=== PATIENT | female | born 1950 | race Caucasian/White ===

== ENCOUNTER → 2017-07-12 08:47 | Outpatient (CLI) | payer MEDICARE, OTHER, SELFPAY ==
--- NOTE | 2017-07-12 08:51 | MM_ITS ---
MM Dig screening mamm BI w/CAD CAD Screening ORDERING PHYSICIAN : Castro Sanchez MD PATIENT AGE: 67 years GENDER: Female . HISTORY No hormones. No new complaints. Noncontributory family history. Previous benign excisional biopsy right breast COMPARISON: Previous mammograms: December 2011, November 2009 mammogram TECHNIQUE: Standard CC and MLO images were obtained. R2 CAD reviewed. FINDINGS: Minimal residual fibrolinear elements diffusely scattered throughout the breast centrally. No dominant mass nor suspicious calcifications. RIGHT BREAST: No significant appearing new areas of concern Small focal area of density inferior right breast is been present I believe on studies dating back to even 2006.. As well as small area of density medial right breast. I would recommend annual follow-up for these features. LEFT BREAST: No significant appearing new areas of concern At the minimal nodularity is similar to previous studies and dissipates from CC and MLO view. Overall no significant appearing change. Would again recommend bilateral follow-up in one year for ongoing evaluation. ......... IMPRESSION: ......... No significant new areas of concern Follow-up bilateral mammogram in one year recommended and should be emphasized/encouraged. . Minimal scattered slightly nodular fibroglandular density bilaterally with No significant new areas concern. BI-RADS Category: 2 Benign Finding(s) RECOMMENDED FOLLOW-UP: 1YR - 1 YEAR FOLLOW-UP Bilateral follow-up recommended and should be emphasized/encouraged (A letter has been sent to the patient regarding results of the study.) Screening
== END ==
PROVIDERS: Family Provider Internal Medicine Adolescent Medicine; PCP Internal Medicine Adolescent Medicine; Visit Provider Internal Medicine Adolescent Medicine
DX: Z12.31 Encounter for screening mammogram for malignant neoplasm of breast (principal)
CPT/HCPCS: 77067

== ENCOUNTER → 2018-08-04 11:08 | Outpatient (CLI) | payer MEDICARE, OTHER, SELFPAY ==
[2018-08-04 12:00] LABS: Basophils # 0.1 K/mm3 (0-0.2); Basophils % 1.7 % (0.1-2.0); Eosinophils # 0.4 K/mm3 (0.0-0.4); Eosinophils % 6.2 % (0.1-12.0); Lymphocytes # 1.6 K/mm3 (0.7-4.5); Mean Corpuscular HGB Conc 27.7 g/dL (31.8-35.4); Mean Corpuscular Hemoglobin 19.1 pg (27.0-31.2); Mean Corpuscular Volume 68.9 fl (81-99); Mean Platelet Volume 6.6 fl (7.4-10.4); Monocytes # 0.4 K/mm3 (0.1-1.0); Monocytes % 6.8 % (1.7-9.3); Neutrophils # 3.8 K/mm3 (1.8-7.8); Neutrophils % 60.3 % (37.0-80.0); Platelet Count 474 K/mm3 (142-424); White Blood Count 6.3 K/mm3 (4.8-10.8)
[2018-08-04 12:26] LABS: Hematocrit 33.7 % (37.0-47.0); Hemoglobin 9.5 g/dL (12.2-16.2); Red Blood Count 4.88 M/mm3 (4.20-5.40)
[2018-08-04 13:36] LABS: Ferritin 8 ng/mL (8-388)
[2018-08-05 17:53] LABS: Vitamin B12 359 pg/mL (232-1245)
== END ==
PROVIDERS: PCP Internal Medicine Adolescent Medicine; Visit Provider Internal Medicine Adolescent Medicine
DX: D64.9 Anemia, unspecified (principal)
CPT/HCPCS: 36415; 82607; 82728; 82746; 85025

== ENCOUNTER → 2018-08-12 12:28 | Outpatient (CLI) | payer MEDICARE, OTHER, SELFPAY ==
--- NOTE | 2018-08-12 12:33 | XR_ITS ---
XR chest 2V HISTORY: ITS.REASON: DYSPNEA ORDERING PHYSICIAN: Castro Sanchez MD PATIENT AGE: 68 years COMPARISON: 02/27/2015 FINDINGS: There is cardiomegaly with a large hiatal hernia. Mild atelectatic changes are present in the right lung base. Lungs are otherwise clear. IMPRESSION: Cardiomegaly with large hiatal hernia unchanged.
== END ==
PROVIDERS: PCP Internal Medicine Adolescent Medicine; Visit Provider Internal Medicine Adolescent Medicine
DX: R06.09 Other forms of dyspnea (principal)
CPT/HCPCS: 71046

== ENCOUNTER → 2018-08-18 09:16 | Outpatient (CLI) | payer MEDICARE, OTHER, SELFPAY ==
[2018-08-18 10:20] LABS: Basophils # 0.1 K/mm3 (0-0.2); Basophils % 1.8 % (0.1-2.0); Eosinophils # 0.4 K/mm3 (0.0-0.4); Hemoglobin 10.2 g/dL (12.2-16.2); Lymphocytes # 1.5 K/mm3 (0.7-4.5); Lymphocytes % 23.4 % (10-50); Mean Corpuscular HGB Conc 27.6 g/dL (31.8-35.4); Mean Corpuscular Volume 72.4 fl (81-99); Monocytes # 0.4 K/mm3 (0.1-1.0); Monocytes % 6.4 % (1.7-9.3); Neutrophils # 3.9 K/mm3 (1.8-7.8); Neutrophils % 61.4 % (37.0-80.0); Platelet Count 483 K/mm3 (142-424); Red Blood Count 5.12 M/mm3 (4.20-5.40); Red Cell Distribution Width 18.4 % (11.5-17.5); White Blood Count 6.3 K/mm3 (4.8-10.8)
[2018-08-18 11:26] LABS: Alanine Aminotransferase 37 U/L (12-78); Albumin Level 3.8 gm/dL (3.4-5.0); Albumin/Globulin Ratio 1.4 (1.1-1.8); Alkaline Phosphatase 139 U/L (46-116); Anion Gap 16.5 mEq/L (5-15); Aspartate Amino Transferase 24 U/L (15-37); Bilirubin,Total 0.4 mg/dL (0.2-1.0); Blood Urea Nitrogen 14 mg/dL (7-18); Calcium 9.3 mg/dL (8.5-10.1); Carbon Dioxide 24 mmol/L (21.0-32.0); Chloride 105 mmol/L (98-107); Creatinine,Serum 0.84 mg/dL (0.55-1.02); Estimated Glomerular Filt Rate 68 ml/min (>60); Ferritin 22 ng/mL (8-388); GFR (African American) 82 ML/MIN (>60); Globulin 2.7 gm/dl (1.3-3.2); Glucose 93 mg/dL (74-106); Potassium 4.5 mmoL/L (3.5-5.1); Sodium 141 mmol/L (136-145); Total Protein,Serum 6.5 gm/dL (6.4-8.2)
[2018-08-19 08:49] LABS: Iron 29 ug/dL (27-139); UIBC 361 ug/dL (118-369)
[2018-08-19 11:36] LABS: Haptoglobin 135 mg/dL (34-200); Iron Saturation 7 % (15-55)
== END ==
PROVIDERS: Visit Provider Internal Medicine Medical Oncology
DX: D50.9 Iron deficiency anemia, unspecified (principal)
CPT/HCPCS: 36415; 80053; 82728; 83010; 83540; 83550; 85025

== ENCOUNTER → 2018-08-22 12:40 | Outpatient (CLI) | payer MEDICARE, OTHER, SELFPAY ==
--- NOTE | 2018-08-22 | CA_ITS ---
PROCEDURE: 2-D M-mode and color Doppler study INDICATIONS FOR THE TEST: Chest pain COPD Heart Murmur+ Tobacco Smoking Palpitations+ Fatigue+ Syncope Edema+ Hypertension Diabetes Mellitus Rheumatic Fever SOB AGUILAR+Obesity+Hyperlipidemia+ Family History HD+ Additional History Anemia PATIENT INFORMATION HEIGHT: 66 WEIGHT: 240 GENDER: Female B/P: 130/78 2-D/M-MODE INTERPRETATION: 2-D MEASUREMENTS OBSERVED VALUES IN CMS Right Ventricular Dimension (RVDd) 1.7 Interventricular Septum (Thickness)(IVsd) 0.7 Left Ventricular Internal Dimensions(LVIDd) 4.3 Left Ventricular Posterior Wall (Thickness)(LVPWd) 0.7 Aortic Root 3.1 Aortic Cusp Separation 2.3 Left Atrial Dimensions (LAD) 2.3 2D 1. Left atrium is mildly enlarged, left ventricle is normal size, left ventricle wall thickness is upper limit of normal, there is hyperdynamic left ventricular systolic function, visually estimated ejection fraction over 65% with no regional wall motion abnormality. 2. The right atrium and right ventricle are normal size and contractility. 3. The aortic valve is thickened and calcified leaflet continue to display good mobility. 4. The mitral and tricuspid valve leaflets are minimally thickened. 5. The pulmonic valve is poorly visualized. 6. No significant pericardial effusion noted. DOPPLER INTERROGATION: There is mildly increased velocity seen across the aortic and mitral valve likely secondary to prior cardiac output state, there is mild aortic and mild mitral regurgitation seen. Grade 1 diastolic dysfunction seen with tissue Doppler evidence of raised left atrial pressure. Mild tricuspid regurgitation noted, tricuspid regurgitation jet velocity is inadequate for calculation of the right ventricular systolic pressure. CONCLUSION: 1. Mildly enlarged left atrium, normal left ventricular size, hyperdynamic left ventricular systolic function, visually estimated ejection fraction over 65% with no regional wall motion abnormality, grade 1 diastolic dysfunction seen with tissue Doppler evidence of raised left atrial pressure. 2. Mild aortic, mild mitral and tricuspid regurgitation. 3. No significant pericardial effusion noted.
== END ==
PROVIDERS: PCP Internal Medicine Adolescent Medicine; Visit Provider Internal Medicine Adolescent Medicine
DX: R06.09 Other forms of dyspnea (principal); R00.2 Palpitations
CPT/HCPCS: 93306

== ENCOUNTER → 2018-08-26 08:44 | Outpatient (CLI) | payer MEDICARE, OTHER, SELFPAY ==
--- NOTE | 2018-08-26 08:47 | MM_ITS ---
MM Dig screening mamm BI w/CAD CAD Screening COMPARISON: Digital mammograms with CAD 07/12/2017 at 01/18/2012 INDICATION: There is no personal or family history of breast cancer. There has been previous biopsy right breast for benign disease. TECHNIQUE: Standard CC and MLO images were obtained. R2 CAD reviewed. FINDINGS: The breasts are composed primarily of fat with minimal scattered fibronodular densities throughout. There are couple benign-appearing calcifications in each breast. There is a stable benign-appearing asymmetric density central portion left breast. There are no suspicious microcalcifications. IMPRESSION: Fibrofatty parenchyma with no suspicious lesion seen. BI-RADS Category: 2 Benign Finding(s) RECOMMENDED FOLLOW-UP: 1YR - 1 YEAR FOLLOW-UP (A letter has been sent to the patient regarding results of the study.)
== END ==
PROVIDERS: PCP Internal Medicine Adolescent Medicine; Visit Provider Internal Medicine Adolescent Medicine
DX: Z12.31 Encounter for screening mammogram for malignant neoplasm of breast (principal)
CPT/HCPCS: 77067

== ENCOUNTER 2018-08-31 10:35 | Outpatient (CLI) | payer MEDICARE, OTHER, SELFPAY ==
[2018-08-31 11:05] VITALS: BP 149/90; PULSE 72; RESP 18; TEMP 36.6; O2SAT 96
[2018-08-31 11:35] VITALS: BP 158/81; PULSE 72; RESP 18
== END 2018-08-31 11:50 | disposition home or self-care (01) ==
LOC: INF 10:43
PROVIDERS: Visit Provider Internal Medicine Medical Oncology
DX: D50.9 Iron deficiency anemia, unspecified (principal); T45.4X5A Adverse effect of iron and its compounds, initial encounter
CPT/HCPCS: 96365; J1439

== ENCOUNTER 2018-09-07 10:53 | Outpatient (CLI) | payer MEDICARE, OTHER, SELFPAY ==
[2018-09-07 11:15] VITALS: BP 141/69; PULSE 52; RESP 18; O2SAT 97
[2018-09-07 12:00] VITALS: BP 161/74; PULSE 50; RESP 18; O2SAT 93
== END 2018-09-07 12:00 | disposition home or self-care (01) ==
LOC: INF 10:53
PROVIDERS: Visit Provider Internal Medicine Medical Oncology
DX: D50.9 Iron deficiency anemia, unspecified (principal)
CPT/HCPCS: 96365

== ENCOUNTER → 2018-10-10 11:07 | Outpatient (CLI) | payer MEDICARE, OTHER, SELFPAY ==
[2018-10-10 11:43] LABS: Basophils # 0.1 K/mm3 (0-0.2); Basophils % 1.5 % (0.1-2.0); Eosinophils # 0.5 K/mm3 (0.0-0.4); Eosinophils % 7.7 % (0.1-12.0); Hematocrit 41.8 % (37.0-47.0); Lymphocytes # 1.4 K/mm3 (0.7-4.5); Lymphocytes % 20.2 % (10-50); Mean Corpuscular HGB Conc 31.2 g/dL (31.8-35.4); Mean Corpuscular Hemoglobin 25.5 pg (27.0-31.2); Mean Corpuscular Volume 81.5 fl (81-99); Mean Platelet Volume 7.4 fl (7.4-10.4); Monocytes # 0.4 K/mm3 (0.1-1.0); Monocytes % 6.2 % (1.7-9.3); Neutrophils # 4.4 K/mm3 (1.8-7.8); Neutrophils % 64.4 % (37.0-80.0); Platelet Count 425 K/mm3 (142-424); Red Blood Count 5.12 M/mm3 (4.20-5.40); Red Cell Distribution Width 21.2 % (11.5-17.5); White Blood Count 6.8 K/mm3 (4.8-10.8)
== END ==
PROVIDERS: Visit Provider Internal Medicine Medical Oncology
DX: D50.9 Iron deficiency anemia, unspecified (principal)
CPT/HCPCS: 36415; 85025

== ENCOUNTER → 2019-09-01 13:04 | Outpatient (CLI) | payer MEDICARE, OTHER, SELFPAY ==
[2019-09-01 14:19] LABS: Basophils # 0.1 K/mm3 (0-0.2); Basophils % 1.4 % (0.1-2.0); Eosinophils # 0.3 K/mm3 (0.0-0.4); Eosinophils % 4.5 % (0.1-12.0); Hematocrit 47.6 % (37.0-47.0); Hemoglobin 16.4 g/dL (12.2-16.2); Lymphocytes # 1.7 K/mm3 (0.7-4.5); Lymphocytes % 24.8 % (10-50); Mean Corpuscular HGB Conc 34.4 g/dL (31.8-35.4); Mean Corpuscular Hemoglobin 30.1 pg (27.0-31.2); Mean Corpuscular Volume 87.5 fl (81-99); Mean Platelet Volume 7.9 fl (7.4-10.4); Monocytes # 0.3 K/mm3 (0.1-1.0); Monocytes % 4.8 % (1.7-9.3); Neutrophils # 4.3 K/mm3 (1.8-7.8); Neutrophils % 64.5 % (37.0-80.0); Platelet Count 296 K/mm3 (142-424); Red Blood Count 5.44 M/mm3 (4.20-5.40); Red Cell Distribution Width 13.8 % (11.5-17.5); White Blood Count 6.7 K/mm3 (4.8-10.8)
[2019-09-01 14:46] LABS: Chloride 105 mmol/L (98-107); Potassium 4.8 mmoL/L (3.5-5.1); Sodium 137 mmol/L (136-145)
[2019-09-01 14:48] LABS: Alanine Aminotransferase 41 U/L (12-78); Aspartate Amino Transferase 43 U/L (14-36); Blood Urea Nitrogen 23 mg/dl (7-17); Estimated Glomerular Filt Rate 83 ml/min (>60); GFR (African American) 101 ML/MIN (>60)
[2019-09-01 14:49] LABS: Albumin Level 4.4 g/dl (3.5-5.0); Albumin/Globulin Ratio 1.8 (1.1-1.8); Alkaline Phosphatase 115 U/L (38-126); Anion Gap 11.8 mEq/L (5-15); Calcium 10.2 mg/dl (8.4-10.2); Carbon Dioxide 25 mmol/L (22.0-30.0); Chol/HDL Ratio 2.6 (1-3.5); Cholesterol 155 mg/dl (140-200); Globulin 2.4 g/dL (1.3-3.2); Glucose 95 mg/dl (74-100); HDL Cholesterol 60 mg/dl (40-60); Total Protein,Serum 6.8 g/dl (6.3-8.2); Triglycerides 141 mg/dl (30-150); VLDL Cholesterol 28 mg/dL (0-40)
[2019-09-01 14:59] LABS: 25-OH Vitamin D, Total 36.5 ng/mL (30-100)
[2019-09-01 15:00] LABS: Direct LDL Cholesterol 84.69 mg/dL (100-129)
[2019-09-01 15:19] LABS: Thyroid Stimulating Hormone 1.13 uIU/mL (0.465-4.68)
== END ==
PROVIDERS: Visit Provider Internal Medicine Adolescent Medicine
DX: E78.5 Hyperlipidemia, unspecified (principal); E03.9 Hypothyroidism, unspecified; E55.9 Vitamin D deficiency, unspecified
CPT/HCPCS: 36415; 80053; 80061; 82306; 84443; 85025

== ENCOUNTER → 2020-01-22 09:30 | Outpatient (CLI) | payer MEDICARE, OTHER, SELFPAY ==
[2020-01-22 10:33] LABS: Basophils # 0.1 K/mm3 (0-0.2); Basophils % 1.8 % (0.1-2.0); Eosinophils # 0.4 K/mm3 (0.0-0.4); Eosinophils % 5.7 % (0.1-12.0); Hematocrit 48.4 % (37.0-47.0); Hemoglobin 15.7 g/dL (12.2-16.2); Lymphocytes # 1.6 K/mm3 (0.7-4.5); Lymphocytes % 25.3 % (10-50); Mean Corpuscular HGB Conc 32.4 g/dL (31.8-35.4); Mean Corpuscular Hemoglobin 29.3 pg (27.0-31.2); Mean Corpuscular Volume 90.3 fl (81-99); Mean Platelet Volume 7.6 fl (7.4-10.4); Monocytes # 0.4 K/mm3 (0.1-1.0); Monocytes % 5.9 % (1.7-9.3); Neutrophils # 3.8 K/mm3 (1.8-7.8); Neutrophils % 61.3 % (37.0-80.0); Platelet Count 283 K/mm3 (142-424); Red Blood Count 5.36 M/mm3 (4.20-5.40); Red Cell Distribution Width 13.9 % (11.5-17.5); White Blood Count 6.2 K/mm3 (4.8-10.8)
[2020-01-22 10:35] LABS: Chloride 104 mmol/L (98-107)
[2020-01-22 10:36] LABS: Potassium 4.6 mmoL/L (3.5-5.1); Sodium 140 mmol/L (136-145)
[2020-01-22 10:39] LABS: Anion Gap 12.6 mEq/L (5-15); Blood Urea Nitrogen 24 mg/dl (7-17); Calcium 9.9 mg/dl (8.4-10.2); Carbon Dioxide 28 mmol/L (22.0-30.0); Estimated Glomerular Filt Rate 83 ml/min (>60); GFR (African American) 101 ML/MIN (>60); Glucose 100 mg/dl (74-100)
[2020-01-22 10:57] LABS: Coronavirus 19 IgG Antibody Negative (Negative); Coronavirus 19 IgM Antibody Negative (Negative)
== END ==
PROVIDERS: Visit Provider Surgery
DX: D17.9 Benign lipomatous neoplasm, unspecified (principal); Z01.818 Encounter for other preprocedural examination
CPT/HCPCS: 36415; 80048; 85025; 86328

== ENCOUNTER 2020-01-24 06:31 | Day surgery (SDC) | payer MEDICARE, OTHER, SELFPAY ==
[2020-01-22 10:53] VITALS: BMI 35.5
[2020-01-24] VITALS (11 sets, daily range): BP systolic 129–165; BP diastolic 70–82; PULSE 49–63; RESP 11–18; TEMP 36.1–36.9; O2SAT 94–97
--- NOTE | 2020-01-24 07:06 | P.PN_ITS ---
[facility] Anesthesia Checklist - Patient Identification Patient Identification: Arm Band, Verbal (Name & ) - Structural Data Admitted From: Home Planned Operative Procedure/s: Excision of left upper extremity lipoma Consent for Planned Operative Procedure(s) Verified: Yes Verified Documents: Surgical Consent, History and Physical - NPO Status Verified Time NPO: 18:00 - Chart Verification Results Verified: CBC, BMP - Additional verifications Anesthesia Reactions: No Hx Blood Transfusions: No Blood Transfusion Reaction: No - Airway Assessment C-Spine Mobility Assessed: Yes TMJ Mobility Assessed: Yes Dentition: Dentures-good fit (Upper) - Neurological Assessment Level of Consciousness: Awake, Alert, Appropriate, Follows Commands Hx Seizures: No Numbness or tingling in extremities: No - Anesthesia Plan Anesthesia Risk discussed: Yes Anesthesia Plan: Verified ASA Class: II Anesthesia Type: General [facility] History I have reviewed the patient's past medical history: Yes Medical History: Reports:: Depression, Hyperlipidemia, Hypertension Denies:: Cancer, Diabetes Mellitus Type 1, Diabetes Mellitus Type 2, Internal Pacemaker, Lung Disease, MRSA, Seizures *Have you ever received a pneumonia vaccine?: Yes *Have you received a flu vaccine this season?: Yes Other Medical History: Reports: Anemia, Hypothyroidism. Denies: Blood Transfusion Reaction Comment:: Obesity Anesthesia experience/problems:: None Laterality Cases: Bilateral: Tonsillectomy Other Surgeries: Yes: Colonoscopy, Hernia Repair, Hysterectomy-Total. No: Pacemaker Amputation: No Fractures: No - *Social History Last grade of school completed: High school graduate Smoking Status: Never smoker Alcohol Intake: never Substance Use Type: denies use *Occupational Status:: retired Housing: house Household Members: none *Travel in the last 8 weeks: None - Psychiatric History Pschychiatric History:: Reports:: Depression Family Hx:: No significant family history
--- NOTE | 2020-01-24 08:23 | P.OP_ITS ---
Date of procedure: 01/24/20 Pre-op Diagnosis:: Massive left upper extremity lipoma Post-op Diagnosis:: Same Procedure performed:: Excision of left upper extremity lipoma (excisional length greater than 10 cm) with intermediate complexity closure Surgeon:: Lonnie Tang MD BOBJ DEVELOPER:: Jose Miguel Garibay Anesthesia: LMA Estimated blood loss (mL): 10 Clinical Note:: Patient is a pleasant 69-year-old female referred by Dr. Castro Sanchez for left upper extremity lipoma. I had previously seen the patient for possible upper endoscopy to evaluate iron deficiency anemia. However she had seen Dr. Dunne and Dr. 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 She is now sent for large left upper extremity lipoma. This is in the region of the posterior left upper extremity overlying the triceps. She states that this has been present for about 2 years but has increased in size. She has discomfort. Operative findings:: Extremely large left upper extremity well-circumscribed lipoma Operative note:: Patient was taken to the operating room. She was given preoperative intravenous antibiotics. In the operating room she was placed in a supine position. General anesthesia was induced via endotracheal tube. Left upper extremity was prepped and draped in the standard surgical fashion. Borders of the palpable lipoma were marked with a skin marker. Due to the redundancy of the skin from the large lipoma skin was marked with skin marker for elliptical incision. Inci shlomo was performed. Dissection was carried down through superficial fascial tissue. Well-circumscribed lipomatous mass was encountered. This was bluntly dissected free from surrounding structures. This is consistent with an extremely large lipoma. Remainder of attachments were incised using electrocautery. The lipoma with the skin ellipse removed from the lipoma were sent as a single specimen. There was some minor oozing at a single point deep in the wound and this was controlled with 3-0 chromic [id number] suture. There appeared to be good hemostasis. Subdermal tissues were closed with interrupted 2-0 Vicryl. Skin was closed with 4-0 Monocryl in a subcuticular fashion. Steri-Strips and dressing was applied. Condition: stable Disposition: PACU Specimens:: Left upper extremity lipoma Complications:: None immediately apparent
--- NOTE | 2020-01-24 08:24 | P.PN_ITS ---
[facility] Anesthesia Record Part I Intake, IV Amount: 700 Estimated blood loss (mL): 20 Urine output (mL): 0 Blood Products used (#): none Blood Pressure: 131/77 SaO2: 96 Pulse Rate: 63 Respiratory Rate: 11 Temperature: 98.4 F Patient is:: Awake, Nasal O2, Stable Stable to PACU at:: 08:20
--- NOTE | 2020-01-24 13:58 | P.PN_ITS ---
[facility] Anesthesia Record Part II Discharge Time: 08:50 Destination: Surgical Day Care (OP Surgery) PACU nurse assessment reviewed?: Yes Patient Condition:: Good Anesthesia Complications:: None Swallowing reflex intact?: Yes Cyanosis?: No Blood Pressure: 140/73 Pulse Rate: 52 Temperature: 98.4 F Mental Status: Alert & Oriented Pain level:: 0 Nausea and/or vomitting:: None Intake, IV Amount: 0
== END 2020-01-24 09:27 | disposition home or self-care (01) ==
LOC: OR 06:32
PROVIDERS: PCP Internal Medicine Adolescent Medicine; Visit Provider Surgery
PROC: (CPT 11406; principal; 2020-01-24 07:30)
DX: D17.22 Benign lipomatous neoplasm of skin and subcutaneous tissue of left arm (principal); L91.8 Other hypertrophic disorders of the skin; R20.8 Other disturbances of skin sensation; D64.9 Anemia, unspecified; E78.5 Hyperlipidemia, unspecified; F32.9 Major depressive disorder, single episode, unspecified
CPT/HCPCS: 11406; 12031; 88304; 96374; J2405

== ENCOUNTER → 2021-01-01 12:46 | Outpatient (CLI) | payer MEDICARE, OTHER, SELFPAY ==
[2021-01-01 13:56] LABS: Basophils # 0.1 K/mm3 (0-0.2); Basophils % 1.5 % (0.1-2.0); Eosinophils # 0.4 K/mm3 (0.0-0.4); Eosinophils % 6.1 % (0.1-12.0); Hematocrit 49.2 % (37.0-47.0); Lymphocytes # 1.7 K/mm3 (0.7-4.5); Lymphocytes % 26.3 % (10-50); Mean Corpuscular HGB Conc 32.4 g/dL (31.8-35.4); Mean Corpuscular Hemoglobin 29.8 pg (27.0-31.2); Mean Corpuscular Volume 91.8 fl (81-99); Mean Platelet Volume 8.3 fl (7.4-10.4); Monocytes # 0.4 K/mm3 (0.1-1.0); Neutrophils # 3.8 K/mm3 (1.8-7.8); Neutrophils % 60.1 % (37.0-80.0); Platelet Count 352 K/mm3 (142-424); Red Blood Count 5.36 M/mm3 (4.20-5.40); Red Cell Distribution Width 13.8 % (11.5-17.5); White Blood Count 6.4 K/mm3 (4.8-10.8)
[2021-01-01 14:03] LABS: Hemoglobin A1C 5.3 % (4.0-6.0)
[2021-01-01 15:03] LABS: Chloride 102 mmol/L (98-107); Potassium 4.8 mmoL/L (3.5-5.1); Sodium 138 mmol/L (136-145)
[2021-01-01 15:05] LABS: Blood Urea Nitrogen 20 mg/dl (7-17); Estimated Glomerular Filt Rate 99 ml/min (>60); GFR (African American) 120 ML/MIN (>60)
[2021-01-01 15:06] LABS: Alanine Aminotransferase 83 U/L (12-78); Albumin Level 4.2 g/dl (3.5-5.0); Albumin/Globulin Ratio 1.9 (1.1-1.8); Alkaline Phosphatase 143 U/L (38-126); Anion Gap 11.8 mEq/L (5-15); Aspartate Amino Transferase 69 U/L (14-36); Bilirubin,Total 0.7 mg/dl (0.2-1.3); Calcium 10.1 mg/dl (8.4-10.2); Carbon Dioxide 29 mmol/L (22.0-30.0); Globulin 2.2 g/dL (1.3-3.2); Glucose 91 mg/dl (74-100); Total Protein,Serum 6.4 g/dl (6.3-8.2)
[2021-01-01 15:32] LABS: 25-OH Vitamin D, Total 34.2 ng/mL (30-100)
[2021-01-01 15:37] LABS: Thyroid Stimulating Hormone 0.07 uIU/mL (0.465-4.68)
== END ==
PROVIDERS: Visit Provider Internal Medicine Adolescent Medicine
DX: E03.9 Hypothyroidism, unspecified (principal); E78.5 Hyperlipidemia, unspecified; E55.9 Vitamin D deficiency, unspecified; E66.3 Overweight; Z68.30 Body mass index [BMI] 30.0-30.9, adult; Z79.899 Other long term (current) drug therapy
CPT/HCPCS: 36415; 80053; 82306; 83036; 84443; 85025

== ENCOUNTER 2021-05-12 01:47 | Emergency (ER) | payer MEDICARE, SELFPAY ==
[2021-05-12] VITALS (8 sets, daily range): BP systolic 105–134; BP diastolic 56–75; PULSE 59–71; RESP 18; TEMP 36.4–36.8; O2SAT 94–97; BMI 34.2
--- NOTE | 2021-05-12 01:52 | CT_ITS ---
PROCEDURE INFORMATION: Exam: CT Abdomen And Pelvis With Contrast Exam date and time: 05/12/2021 2:34 AM Age: 71 years old Clinical indication: Nausea and vomiting and other: Diarrhea; Additional info: N/v/d for < 3hr TECHNIQUE: Imaging protocol: Computed tomography of the abdomen and pelvis with contrast. Radiation optimization: All CT scans at this facility use at least one of these dose optimization techniques: automated exposure control; mA and/or kV adjustment per patient size (includes targeted exams where dose is matched to clinical indication); or iterative reconstruction. Contrast material: ISOVUE; Contrast volume: 75 ml; Contrast route: IV; COMPARISON: CR (CHEST PA, CHEST, CHEST PA) 08/12/2018 12:51 PM FINDINGS: Liver: Normal. No mass. Gallbladder and bile ducts: Normal. No calcified stones. No ductal dilation. Pancreas: Normal. No ductal dilation. Spleen: Normal. No splenomegaly. Adrenal glands: Normal. No mass. Kidneys and ureters: There is a 1.7 cm cyst in the right kidney. The left kidney is normal. No ureteral stones or obstructive uropathy. Stomach and bowel: Loops of small bowel in the left upper quadrant with thickened gibson consistent with infectious or inflammatory enteritis. Appendix: No evidence of appendicitis. Intraperitoneal space: Unremarkable. No free air. No significant fluid collection. Vasculature: Unremarkable. No abdominal aortic aneurysm. Lymph nodes: Unremarkable. No enlarged lymph nodes. Urinary bladder: Unremarkable as visualized. Reproductive: Unremarkable as visualized. Bones/joints: Unremarkable. No acute fracture. Soft tissues: Unremarkable. IMPRESSION: Infectious or inflammatory enteritis. Right renal cyst. COMMENTS: Consistent with the [employer]'s Incidental Findings Committee white paper (J Am Ann Radiol 2018): Any incidental renal lesion less than 1 cm or classified as too small to characterize, or any incidental cystic renal lesion characterized as simple-appearing, is likely benign. No follow-up imaging is recommended for these lesions per consensus recommendations based on imaging criteria.
--- NOTE | 2021-05-12 01:52 | ECG_ITS ---
APPROVED REPORT Exam: Resting ECG HR:59 bpm ECG Measurements Heart Rate 59 AXES WA 180 P 12 QRSd 84 QRS 101 QT 398 T -2 QTc 397 Conclusion SINUS BRADYCARDIA RIGHT AXIS DEVIATION [QRS AXIS > 100] LOW QRS VOLTAGE IN PRECORDIAL LEADS [QRS DEFLECTION < 1.0 mV IN CHEST LEADS] NONSPECIFIC T-WAVE ABNORMALITY ABNORMAL ECG UNCONFIRMED REPORT Electronically signed by : Castro Sanchez MD 05/13/2021 16:43:41
[2021-05-12 02:03] LABS: Basophils # 0.1 K/mm3 (0-0.2); Basophils % 1.1 % (0.1-2.0); Eosinophils # 0.3 K/mm3 (0.0-0.4); Eosinophils % 2.2 % (0.1-12.0); Hematocrit 52.3 % (37.0-47.0); Hemoglobin 17.1 g/dL (12.2-16.2); Lymphocytes # 1.4 K/mm3 (0.7-4.5); Lymphocytes % 10.7 % (10-50); Mean Corpuscular HGB Conc 32.6 g/dL (31.8-35.4); Mean Corpuscular Hemoglobin 30.5 pg (27.0-31.2); Mean Corpuscular Volume 93.3 fl (81-99); Mean Platelet Volume 8.2 fl (7.4-10.4); Monocytes # 0.4 K/mm3 (0.1-1.0); Monocytes % 2.9 % (1.7-9.3); Neutrophils # 10.9 K/mm3 (1.8-7.8); Platelet Count 316 K/mm3 (142-424); Red Blood Count 5.61 M/mm3 (4.20-5.40); Red Cell Distribution Width 13.7 % (11.5-17.5); White Blood Count 13.1 K/mm3 (4.8-10.8)
[2021-05-12 02:03] LABS: POC Glucose,Bedside 128 (70-110)
[2021-05-12 02:06] LABS: Coronavirus 19, PCR Not Detected (NotDetected); Influenza A, PCR Not Detected (NotDetected); Influenza B, PCR Not Detected (NotDetected)
[2021-05-12 02:17] LABS: Alanine Aminotransferase 45 U/L (12-78); Albumin Level 4.6 g/dl (3.5-5.0); Albumin/Globulin Ratio 1.7 (1.1-1.8); Alkaline Phosphatase 110 U/L (38-126); Amylase 73 U/L (30-110); Anion Gap 16.2 mEq/L (5-15); Aspartate Amino Transferase 51 U/L (14-36); Bilirubin,Total 0.6 mg/dl (0.2-1.3); Blood Urea Nitrogen 24 mg/dl (7-17); Carbon Dioxide 23 mmol/L (22.0-30.0); Chloride 105 mmol/L (98-107); Creatinine Clearance Estimated 81 mL/min (50-200); Estimated Glomerular Filt Rate 71 ml/min (>60); GFR (African American) 86 ML/MIN (>60); Globulin 2.7 g/dL (1.3-3.2); Glucose 131 mg/dl (74-100); Lipase 44 U/L (23-300); Magnesium 1.7 mg/dl (1.6-2.3); Potassium 4.2 mmoL/L (3.5-5.1); Sodium 140 mmol/L (136-145); Total Protein,Serum 7.3 g/dl (6.3-8.2)
[2021-05-12 02:18] LABS: Lactic Acid 2.2 mmol/L (0.7-2.1)
[2021-05-12 02:24] LABS: C-Reactive Protein 1.3 mg/L (0-4)
[2021-05-12 02:28] LABS: Erythrocyte Sedimentation Rate 4 mm/hr (0-30)
[2021-05-12 02:33] LABS: Troponin I < 0.01 ng/ml (0.00-0.034)
[2021-05-12 02:38] LABS: Adenovirus F 40/41, stool Not Detected (NotDetected); Astrovirus Not Detected (NotDetected); Campylobacter Not Detected (NotDetected); Clostridium Difficile A/B, PCR Not Detected (NotDetected); Cryptosporidium Not Detected (NotDetected); Cyclospora Cayetanesis Not Detected (NotDetected); Entamoeba histolytica Not Detected (NotDetected); Enteroaggregative E coli Not Detected (NotDetected); Enteropathogenic E coli Not Detected (NotDetected); Enterotoxigenic E coli Not Detected (NotDetected); Giardia lamblia Not Detected (NotDetected); Plesimonas Shigalloides, PCR Not Detected (NotDetected); Rotavirus A Not Detected (NotDetected); Salmonella, PCR Not Detected (NotDetected); Sapovirus Not Detected (NotDetected); Shiga-like toxin E coli Not Detected (NotDetected); Shigella Enterovasive E coli Not Detected (NotDetected); Vibrio Cholerae Not Detected (NotDetected); Vibrio, PCR Not Detected (NotDetected); Yersinia Entercolitica, PCR Not Detected (NotDetected)
[2021-05-12 02:38] LABS: Procalcitonin 0.064 ng/mL (0.0-2.0)
[2021-05-12 02:51] LABS: Thyroid Stimulating Hormone 0.98 uIU/mL (0.465-4.68)
[2021-05-12 04:20] LABS: Norovirus Detected (NotDetected)
--- NOTE | 2021-05-12 04:52 | PC.NURSE ---
forestry technician notified staff the [facility] is behind on reading images and reports will be back as soon as possible. notified pt and pt's family @ this time
--- NOTE | 2021-05-12 05:19 | HMH.EDNVD ---
ED Disposition Clinical Impression: Enteritis due to Norovirus Disposition: Home, Self-Care Condition on Discharge: Good Instructions: DI for Norovirus Infection Additional Instructions: fluids and see pcp for follow up Referrals: Castro Sanchez MD [Primary Care Provider] - - Critical Care Critical Care Time: No Attestation: On 05/12/21, the high probability of a clinically significant, sudden or life threatening deterioration of the following system(s) required my full and direct attention, intervention and personal management. The time I documented below is in addition to time spent performing reported procedures but includes the following listed in this critical care notation. Medical Decision Making - Medical Records Medical records reviewed: Yes: I reviewed the patient's medical records. - Scott Inquiry Pt receiving controlled substance: No Vital Signs: 05/12/21 01:47 Temperature 97.5 F L Temperature Source Oral Pulse Rate [Right] 61 Respiratory Rate 18 Blood Pressure [Right Arm] 132/75 Blood Pressure Mean [Right Arm] 94 02 Sat by Pulse Oximetry 95 - Lab Data Lab results reviewed: Yes: I reviewed the patient's lab results. Lab Results 05/12/21 01:54: WBC 13.1 H, RBC 5.61 H, Hgb 17.1 H, Hct 52.3 H, MCV 93.3, MCH 30.5, MCHC 32.6, RDW 13.7, Plt Count 316, MPV 8.2, Neut % (Auto) 83.0 H, Lymph % (Auto) 10.7, Ness % (Auto) 2.9, Eos % (Auto) 2.2, Baso % (Auto) 1.1, Neut # (Auto) 10.9 H, Lymph # (Auto) 1.4, Ness # (Auto) 0.4, Eos # (Auto) 0.3, Baso # (Auto) 0.1, ESR 4 05/12/21 01:54: Sodium 140, Potassium 4.2, Chloride 105, Carbon Dioxide 23, Anion Gap 16.2 H, BUN 24 H, Creatinine 0.80, Estimated Creat Clear 81, Estimated GFR 71, Est GFR ( Amer) 86, Glucose 131 H, Calcium 10.0, Magnesium 1.7, Total Bilirubin 0.6, AST 51 H, ALT 45, Alkaline Phosphatase 110, Troponin I < 0.01, C-Reactive Protein 1.3, Total Protein 7.3, Albumin 4.6, Globulin 2.7, Albumin/Globulin Ratio 1.7, Amylase 73, Lipase 44, Procalcitonin 0.064, TSH 0.98 05/12/21 01:54: Lactate 2.2 H 05/12/21 01:56: POC Glucose 128 H 05/12/21 02:02: SARS-CoV-2 (PCR) Not detected, Influenza A Untype (PCR) Not detected, Influenza Type B (PCR) Not detected 05/12/21 02:20: Stl Aeromonas (PCR) Not detected, Stl C. cayetanensis PCR Not detected, Stool Rotavirus (PCR) Not detected, Stl Adenov F 40/41 PCR Not detected, Stool Astrovirus (PCR) Not detected, Stool Campylobacter PCR Not detected, Stl C.difficile Tox PCR Not detected, Stool Cryptosporidium PCR Not detected, Stl E.coli Shiga Tox PCR Not detected, Stool E coli O157 PCR Not detected, Stl Enterotoxigenic E PCR Not detected, Stool EPEC (PCR) Not detected, Stool EAEC (PCR) Not detected, Stl E. histolytica PCR Not detected, Stool Giardia Lamblia PCR Not detected, Stool Salmonella PCR Not detected, Stool Sapovirus (PCR) Not detected, Stl P. shigelloides PCR Not detected, Stl Shigella/EIEC PCR Not detected, St Y.enterocolitica PCR Not detected, Stool Vibrio (PCR) Not detected, Stl Vibrio cholerae PCR Not detected, Stl Norovirus GI/GII PCR Detected A Result diagrams: 05/12/21 01:54 05/12/21 01:54 Orders (Tests/Meds): ED MEDICATIONS Generic Name Dose Route Start Last Admin Trade Name Freq PRN Reason Stop Dose Admin Lactated Ringer's 1,000 mls @ 999 mls/hr 05/12/21 02:00 05/12/21 02:00 Lactated Ringer's 1000 Ml Bag IV 05/12/21 03:00 999 mls/hr .Q1H1M ANABELLA Administration Lactated Ringer's 1,000 mls @ 999 mls/hr 05/12/21 04:30 05/12/21 04:22 Lactated Ringer's 1000 Ml Bag IV 05/12/21 05:30 999 mls/hr .Q1H1M ANABELLA Administration Sodium Chloride 8 ml 05/12/21 01:55 Sodium Chloride 0.9% 10ml Vial IV 06/11/21 01:54 NEEDED PRN dilute pepcid Discontinued Medications Generic Name Dose Route Start Last Admin Trade Name Freq PRN Reason Stop Dose Admin Famotidine 20 mg 05/12/21 01:55 05/12/21 02:00 Famotidine 20mg/2ml Vial IV 05/12/21 01:56 20 mg ONCE
== END 2021-05-12 05:33 | disposition home or self-care (01) ==
PROVIDERS: Emergency Provider Emergency Medicine; PCP Internal Medicine Adolescent Medicine
DX: A08.11 Acute gastroenteropathy due to Norwalk agent (principal); I10 Essential (primary) hypertension; E78.5 Hyperlipidemia, unspecified; F33.1 Major depressive disorder, recurrent, moderate; E03.9 Hypothyroidism, unspecified; R19.7 Diarrhea, unspecified; D64.89 Other specified anemias
CPT/HCPCS: 74177; 80053; 82150; 82962; 83605; 83690; 83735; 84145; 84443; 84484; 85025; 85651; 86140; 87040; 87507; 93005; 96360; 96361; 96365; 96366; 96374; 96375; 99284; C9803; J2405; Q9967; U0003; U0005

== ENCOUNTER → 2022-02-04 08:18 | Outpatient (CLI) | payer MEDICARE, SELFPAY ==
--- NOTE | 2022-02-04 08:21 | XR_ITS ---
FINAL REPORT TECHNIQUE: Bone densitometry calculations of the lumbar spine and right hip were obtained. CLINICAL HISTORY: post menopausal FINDINGS: DEXA BONE DENSITY AXIAL SKELETON Using L1-4, the bone mineral density of the spine is 0.939 g/cm2, corresponding to T-score of -1.0. Using the right hip, the bone mineral density of the femoral neck is 0.680 g/cm2, corresponding to a T-score of -1.5. NOTE: T-score: Standard deviation compared with peak bone mass of young adult mean. *Following the recommendations of the International Society of Bone densitometry, classification of hip BMD is based on the lower of two T-scores; total hip or femoral neck. IMPRESSION: Diminished bone mineral density of the lumbar spine and right hip consistent with osteopenia. FRAX 10 year fracture risk is 1.3% for a hip fracture and 9.2% for a major osteoporotic fracture. Reviewed, Interpreted and Dictated by Lonnie Brewster III, MD Transcribed by [facility] [employer] Authenticated and [facility]
--- NOTE | 2022-02-04 08:21 | MM_ITS ---
PROCEDURE INFORMATION: Exam: MG Bilateral Screening 3D Mammography Exam date and time: 02/04/2022 8:36 AM Age: 71 years old Clinical indication: Screening examination TECHNIQUE: Imaging protocol: Bilateral Screening tomosynthesis and 2D mammography including computer-aided detection (CAD) when performed. COMPARISON: 1. MG DIG MAMM-SCREEN ALAN 08/26/2018 9:14 AM 2. MG SCBI MM Dig screening mamm BI w/CAD 07/12/2017 9:08 AM FINDINGS: MAMMOGRAPHY: Breast composition: There are scattered areas of fibroglandular density. Mass: None. Architectural distortion: None. Calcifications: No suspicious calcifications. Asymmetric density: None. Skin thickening: None. Axillary adenopathy: None. IMPRESSION: No mammographic evidence of malignancy. Annual screening is recommended unless otherwise clinically indicated. ASSESSMENT: BI-RADS Category 1: Negative
== END ==
PROVIDERS: PCP Internal Medicine Adolescent Medicine; Visit Provider Internal Medicine Adolescent Medicine
DX: Z12.31 Encounter for screening mammogram for malignant neoplasm of breast (principal); Z78.0 Asymptomatic menopausal state
CPT/HCPCS: 77063; 77067; 77080

== ENCOUNTER 2022-04-15 08:56 | Emergency (ER) | payer MEDICARE, SELFPAY ==
[2022-04-15 09:01] VITALS: BP 147/73; PULSE 65; O2SAT 99
--- NOTE | 2022-04-15 09:03 | ECG_ITS ---
APPROVED REPORT Exam: Resting ECG HR:52 bpm ECG Measurements Heart Rate 52 AXES HI 186 P 58 QRSd 75 QRS 30 QT 396 T 43 QTc 376 Conclusion SINUS BRADYCARDIA LOW QRS VOLTAGE IN PRECORDIAL LEADS Late R wave progression. Unchanged from prior UNCONFIRMED REPORT Electronically signed by : Castro Sanchez MD 04/15/2022 14:12:26
[2022-04-15 09:04] VITALS: BP 147/73; PULSE 58; RESP 28; O2SAT 98; BMI 34.2
--- NOTE | 2022-04-15 09:10 | ECG_ITS ---
APPROVED REPORT Exam: Resting ECG HR:54 bpm ECG Measurements Heart Rate 54 AXES UT 180 P 112 QRSd 76 QRS 56 QT 383 T 35 QTc 368 Conclusion SINUS BRADYCARDIA LOW QRS VOLTAGE [QRS DEFLECTION < 0.5/1.0 mV IN Late R wave progression, unchanged from prior ABNORMAL ECG UNCONFIRMED REPORT Electronically signed by : Castro Sanchez MD 04/15/2022 14:11:55
[2022-04-15 09:24] LABS: Coronavirus 19, PCR Not Detected (NotDetected); Influenza A, PCR Not Detected (NotDetected); Influenza B, PCR Not Detected (NotDetected)
[2022-04-15 09:31] VITALS: BP 123/65; PULSE 54; O2SAT 95
[2022-04-15 10:01] VITALS: BP 133/67; PULSE 51; O2SAT 92
--- NOTE | 2022-04-15 10:12 | HMH.EDGENADL ---
Discharge Plan Disposition Patient Disposition: Home, Self-Care Condition: Good Prescriptions Prescriptions: New methylprednisolone [Medrol] 4 mg tablet 4 mg PO DAILY Qty: 30 0RF benzonatate 100 mg capsule 100 mg PO TID PRN (Reason: cough) Qty: 20 0RF doxycycline hyclate [Vibramycin] 100 mg capsule 100 mg PO BID Qty: 20 0RF albuterol sulfate [ProAir HFA] 90 mcg/actuation HFA aerosol inhaler 2 inh inhalation Q6H PRN (Reason: shortness of breath or wheezing) Qty: 6.7 0RF No Action atorvastatin 80 mg tablet 80 mg PO DAILY venlafaxine 150 MG capsule,extended release 24hr 150 mg PO DAILY levothyroxine 150 MCG tablet 150 mcg PO DAILY bisoprolol fumarate 5 MG tablet 5 mg PO DAILY Referrals Follow up/Referrals: Castro Sanchez MD [Primary Care Provider] - See instructions Activity Restrictions/Add. Instructions Additional Instructions/Restrictions: Doxycycline, antibiotic, as prescribed. Medrol steroid pack as prescribed. Albuterol inhaler as needed for shortness of breath and wheezing. Tessalon Perles as needed for cough. Follow-up with Dr. Sanchez in the office, call for appointment. Additional instructions for ACUTE BRONCHITIS: Use Tylenol or Ibuprofen for pain or fever. Rest and plenty of fluids. Return immediately if you have an uncontrollable fever greater than 102 degrees, severe headache or neck stiffness, difficulty breathing or shortness of breath, persistent vomiting, severe sore throat or inability to swallow. See your physician if not improving in 4-5 days. Clinical Impressions Clinical Impression: Acute bronchitis with bronchospasm Instructions Patient Instructions: DI for Acute Bronchitis Discharge ED Provider: Daniel Villeda General Adult HPI General Chief complaint: Shortness of Breath/Dyspnea Stated complaint: SOA Cough wheezing Time Seen by Provider: 04/15/22 10:10 Mode of Arrival: Ambulatory Source of Information: Patient Limitations: No Limitations Description of Symptoms (Recalled from ER Triage Doc. by RN): Pt c/o consistent cough, congestion worsening and accompanying shortness of breath w bronchial discomfort since 04/12; denies PMHx lung tissue or pulm disease History of Present Illness HPI narrative: Patient states that for the past 3 to 4 days she has had a bad cough, chest congestion. Denies chest pain. Denies fever. She had some rhinorrhea which is resolved. Denies sore throat. She saw her primary care provider on 04/13/2022 and says that she was told that she had crackles in her chest, and was diagnosed with a chest cold. She was given injection of steroids. No testing done. Today she feels worse, therefore comes to the emergency department. She is a non-smoker, no history of asthma or COPD or other lung problems. Denies cardiac disease. Prior to my evaluation she received a nebulizer treatment which she feels has helped. Related Data Home Medications Medication Instructions Recorded Confirmed levothyroxine 150 mcg tablet 150 mcg PO DAILY tyhyroid 08/17/17 05/12/21 venlafaxine 150 mg 150 mg PO DAILY Depression 08/17/17 05/12/21 capsule,extended release 24 hr atorvastatin 80 mg tablet 80 mg PO DAILY Cholesterol 08/18/18 05/12/21 bisoprolol fumarate 5 mg tablet 5 mg PO DAILY High blood pressure 01/22/20 05/12/21 Previous Rx's Medication Instructions Recorded albuterol sulfate 90 mcg/actuation 2 inh inhalation Q6H PRN shortness 04/15/22 aerosol inhaler (ProAir HFA) of breath or wheezing #6.7 grams benzonatate 100 mg capsule 100 mg PO TID PRN cough #20 caps 04/15/22 doxycycline hyclate 100 mg capsule 100 mg PO BID #20 caps 04/15/22 (Vibramycin) methylprednisolone 4 mg tablet 4 mg PO DAILY #30 tabs 04/15/22 (Medrol) Allergies Allergy/AdvReac Type Severity Reaction Status Date / Time No Known Allergies Allergy Verified 02/09/20 13:35 [facility] Disclaimer: The information contained in this
--- NOTE | 2022-04-15 10:18 | XR_ITS ---
FINAL REPORT CLINICAL HISTORY: cough NON PRODUCTIVE FINDINGS: Two views of the chest were obtained. The heart size and pulmonary vascularity are within normal limits. The mediastinum is normal. There is mild left lung base opacity, favor atelectasis. There is localized eventration of the right hemidiaphragm. There is no pneumothorax. The bony thorax is intact. IMPRESSION: Mild left lung base opacity, favor atelectasis. Localized eventration of the right hemidiaphragm. Reviewed, Interpreted and Dictated by Lonnie Brewster III, MD Transcribed by Blessing Wing Authenticated and [facility]
--- NOTE | 2022-04-15 10:20 | PC.NURSE ---
rad notified of xray order
[2022-04-15 10:26] LABS: Chloride 107 mmol/L (98-107); Potassium 4.5 mmoL/L (3.5-5.1); Sodium 141 mmol/L (136-145)
[2022-04-15 10:29] LABS: Anion Gap 7.5 mEq/L (5-15); Blood Urea Nitrogen 23 mg/dl (7-17); Carbon Dioxide 31 mmol/L (22.0-30.0); Creatinine Clearance Estimated 79 mL/min (50-200); Estimated Glomerular Filt Rate 83 ml/min (>60); GFR (African American) 100 ML/MIN (>60)
[2022-04-15 10:30] LABS: Calcium 9.2 mg/dl (8.4-10.2); Glucose 101 mg/dl (74-100)
[2022-04-15 10:33] LABS: Lactic Acid 1.4 mmol/L (0.7-2.1)
[2022-04-15 10:36] LABS: Basophils # 0.1 K/mm3 (0-0.2); Basophils % 1.8 % (0.1-2.0); Eosinophils # 0.4 K/mm3 (0.0-0.4); Eosinophils % 6.2 % (0.1-12.0); Hematocrit 51.1 % (37.0-47.0); Hemoglobin 16.4 g/dL (12.2-16.2); Lymphocytes # 2.1 K/mm3 (0.7-4.5); Lymphocytes % 36.8 % (10-50); Mean Corpuscular Hemoglobin 29.7 pg (27.0-31.2); Mean Corpuscular Volume 92.6 fl (81-99); Mean Platelet Volume 8.2 fl (7.4-10.4); Monocytes # 0.3 K/mm3 (0.1-1.0); Monocytes % 5.6 % (1.7-9.3); Neutrophils # 2.8 K/mm3 (1.8-7.8); Neutrophils % 49.6 % (37.0-80.0); Platelet Count 259 K/mm3 (142-424); Red Blood Count 5.52 M/mm3 (4.20-5.40); Red Cell Distribution Width 13.6 % (11.5-17.5); White Blood Count 5.6 K/mm3 (4.8-10.8)
[2022-04-15 10:41] VITALS: BP 116/70; PULSE 54; O2SAT 97
--- NOTE | 2022-04-15 10:43 | PC.NURSE ---
urine specimen sent up at this time pt resting in bed, call light within reach
--- NOTE | 2022-04-15 10:54 | PC.NURSE ---
LISA TOWNSEND speaking with dr. harrell
[2022-04-15 12:18] VITALS: BP 123/70; PULSE 47; RESP 14; TEMP 36.9; O2SAT 93
== END 2022-04-15 12:21 | disposition home or self-care (01) ==
PROVIDERS: Emergency Provider Emergency Medicine; PCP Internal Medicine Adolescent Medicine
DX: J20.9 Acute bronchitis, unspecified (principal); Z20.822 Contact with and (suspected) exposure to COVID-19
CPT/HCPCS: 71046; 80048; 83605; 85025; 87040; 93005; 96374; 99285; C9803; U0003; U0005

== ENCOUNTER → 2023-01-28 14:08 | Outpatient (CLI) | payer MEDICARE, SELFPAY ==
--- NOTE | 2023-01-28 14:14 | MM_ITS ---
PROCEDURE INFORMATION: Exam: MG Bilateral Screening 3D Mammography Exam date and time: 01/28/2023 2:08 PM Age: 72 years old Clinical indication: Screening. No family history of breast cancer. TECHNIQUE: Imaging protocol: Bilateral Screening tomosynthesis and 2D mammography including computer-aided detection (CAD) when performed. COMPARISON: 1. MG MM DIG SCREENING MAMM BI W/CAD 02/04/2022 8:36 AM 2. MG DIG MAMM-SCREEN ALAN 08/26/2018 9:14 AM 3. MG SCBI MM Dig screening mamm BI w/CAD 07/12/2017 9:08 AM 4. MG DMSB DIGITAL MAMM-SCREEN BILATERAL 01/18/2012 4:15 PM FINDINGS: MAMMOGRAPHY: Breast composition: There are scattered areas of fibroglandular density. Mass: No suspicious mass. Architectural distortion: None. Calcifications: No suspicious calcifications. Asymmetric density: None. Skin thickening: None. Axillary adenopathy: None. IMPRESSION: No mammographic evidence of malignancy. Annual screening is recommended unless otherwise clinically indicated. ASSESSMENT: BI-RADS Category 1: Negative
== END ==
LOC: RAD 14:09
PROVIDERS: PCP Internal Medicine Adolescent Medicine; Visit Provider Internal Medicine Adolescent Medicine
DX: Z12.31 Encounter for screening mammogram for malignant neoplasm of breast (principal)
CPT/HCPCS: 77063; 77067

== ENCOUNTER → 2023-02-11 07:27 | Outpatient (CLI) | payer MEDICARE, SELFPAY ==
--- NOTE | 2023-02-11 07:31 | XR_ITS ---
FINAL REPORT CLINICAL HISTORY: RT SHOULDER PAIN COMPARISON: None FINDINGS: RIGHT SHOULDER Three views demonstrate no acute fracture or dislocation. There are mild hypertrophic changes at the AC joint. The visualized joint spaces are normally aligned. The soft tissues are unremarkable. IMPRESSION: Hypertrophic changes without acute process. Reviewed, Interpreted and Dictated by Gabriel Luz MD Transcribed by Maryam Matt Authenticated and [facility]
== END ==
LOC: RAD 07:28
PROVIDERS: PCP Internal Medicine Adolescent Medicine; Visit Provider Physician Assistant
DX: M25.511 Pain in right shoulder (principal)
CPT/HCPCS: 73030

== ENCOUNTER 2023-10-17 10:49 | Inpatient (IN) | payer MEDICARE, SELFPAY ==
[2023-10-17] VITALS (24 sets, daily range): BP systolic 102–145; BP diastolic 54–83; PULSE 49–61; RESP 14–23; TEMP 36.4–36.7; O2SAT 92–100; BMI 37.3
--- NOTE | 2023-10-17 | IR_ITS ---
APPROVED REPORT Patient Location: [facility] Machine Crewman: SENAIT Huitron RT (R) PROCEDURES Left heart catheterization Left ventriculogram Selective coronary angiogram INDICATION Acute ST elevation myocardial infarction Informed consent was obtained prior to the procedure. COMPLICATIONS None Estimated Blood Loss: Less than 10 mls TECHNIQUE One percent lidocaine used to anesthetize the right anterior aspect of the wrist. The right radial artery was accessed via the Seldinger technique. A 6 Polish sheath was placed in the right radial artery. 2.5 mg of Verapamil, 800 mcg of nitroglycerin, 1mg Lidocaine and 5000 U Heparin were given through the arterial sheath. The papa catheter was also used to perform left heart catheterization, left ventriculogram and selective coronary angiogram. At the end of the procedure the sheath was removed good hemostasis was achieved using Traclet band, patient was transferred to the postop holding area in stable condition. ANGIOGRAPHIC RESULTS The left main artery Large-caliber and normal The left anterior descending artery Is a large-caliber vessel with no angiographic evidence of macrovascular atherosclerotic plaque. The vessel is considered angiographically normal however GABINO II flow is present in the proximal to midportion with GABINO I flow in the distal segment The circumflex artery Massively large and dominant with diffuse GABINO II flow The right coronary artery Small nondominant normal The STRONG ventriculogram reveals Preserved at 55 to 60% there appears to be some mid anterior apical hypokinesis The left ventricular end-diastolic pressure 25 mmHg IMPRESSION No angiographic evidence of atherosclerotic plaque accompanied by slow flow down the LAD consistent with acute Takotsubo cardiomyopathy Regional wall motion abnormality also consistent with Takotsubo cardiomyopathy Elevated LVEDP PLAN 1. Start patient on nitroglycerin drip and continue overnight for a target blood pressure of 120 to 130 mmHg systolic 2. Supportive care 3. Echocardiogram in the morning Electronically signed by : Jake Collado MD 10/17/2023 12:40:20
--- NOTE | 2023-10-17 11:06 | ECG_ITS ---
APPROVED REPORT Exam: Resting ECG HR:54 bpm ECG Measurements Heart Rate 54 AXES AL 208 P 63 QRSd 65 QRS 31 QT 404 T 30 QTc 389 Conclusion SINUS BRADYCARDIA WITH MARKED SINUS ARRHYTHMIA LOW QRS VOLTAGE IN PRECORDIAL LEADS [QRS DEFLECTION < 1.0 mV IN CHEST LEADS] ST ELEVATION, CONSIDER ANTERIOR INJURY [MARKED ST ELEVATION W/O NORMALLY INFLECTED T-WAVE IN V2-V5] ST ELEVATION, CONSIDER INFERIOR INJURY [MARKED ST ELEVATION W/O NORMALLY INFLECTED T-WAVE IN II/aVF] ACUTE [place] UNCONFIRMED REPORT Electronically signed by : Cortez Boston, 10/17/2023 14:51:50
--- OUTSIDE RECORDS SUMMARY | 2023-10-17 11:09 | XMS_ITS | Continuity of Care Document ---
Author Organization [facility] Phone Care Team Providers Care Tetryl Boiling Tub Operator Name Role Phone LIZZY JONES Admitting LIZZY JONES Primary Care LIZZY JONES Primary Attending LIZZY JONES Unavailable TREATMENT PLAN DISCHARGE MEDICATIONS Status RXNORM Medication Dose Route Frequency Dates Comments U pdated By Patient discharge medication information is not available. PATIENT OPEN ORDERS Code System Description Frequency Occurrences Priority [place] [id number] [facility] Upper extremity joint - right MRI WO contrast ONE TIME 0 Routine February 17, 2023 1:36:00 PM [facility] ROBERT BALL MD [id number] on February 17, 2023 1:36:00 PM [facility] SCHEDULED PROCEDURES Code System Description Status Scheduled Date Upd ated By Patient scheduled procedure information is not available. MEDICATIONS HOME MEDICATIONS Status RXNORM Medication Dose Route Frequency Dates Comments R eported By Updated By Drug Treatment Unknown DISCHARGE MEDICATIONS Status RXNORM Medication Dose Route Frequency Dates Comments Physic eveline Updated By No Discharge Medication Info rmation Available INPATIENT MEDICATIONS Status RXNORM Medication Dose Route Frequency Rate Quantity Dates Comments Physician Updated By No Inpatient Medication Info rmation Available SOCIAL HISTORY SOCIAL HISTORY SNOMED-CT Social History Element Description Effective Dates Offered Cessation Comment UpdatedBy [id number] Smoking Status Unknown If Ever Smoked SOCIAL HISTORY - Gender Sex: Female SOCIAL HISTORY - Sexual Behavior Sexual Orientation Gender Identity SNOMED-CT Description SNO MED -CT Description Activity Level No of Partners Partner Type UpdatedBy Information is not available HEALTH CONCERNS Problems Concern Status Health Concern problem infor mation not available. Smoking Status Status Years Used Consumed packs p er day Health Concern smoking histo ry information not available. Family History Concern Status Health Concern family histor y information not available. ENCOUNTERS ENCOUNTER INFORMATION Reason for Visit M25.511 Admission February 17, 2023 1:22:00 PM UTC [address] [address] Discharge February 17, 2023 1:22:00 PM [place] DISCHARGED TO HOME OR SELF CARE ENCOUNTER DIAGNOSES Notes information is not teresa ilable. Code System Diagnosis Onset Date Diagnosis information is not available. ABSTRACT DIAGNOSES Code System Diagnosis Updated By M25.511 ICD10 PAIN IN RIGHT SHOULDER [id number] on February 11, 2023 8:47:03 PM UTC CARE TEAM Care Tetryl Boiling Tub Operator Role LIZZY JONES Admitting LIZZY JONES Primary Care LIZZY JONES Primary Attending LIZZY JONES Referring CARE TEAM CARE associate merchandiser Role on Team Status Start Date End Date Update d By ROBERT BALL MD PCP normal February 11, 2023 8:47:04 PM UTC February 17, 2023 1:22:00 PM [place] [id number] on February 11, 2023 8:47:04 PM [facility] ROBERT BALL MD Referring normal February 11, 2023 8:47:04 PM UTC February 17, 2023 1:22:00 PM [place] [id number] on February 11, 2023 8:47:04 PM [facility] ROBERT BALL MD Attending normal February 11, 2023 8:47:04 PM UTC February 17, 2023 1:22:00 PM [place] [id number] on February 11, 2023 8:47:04 PM [facility] ROBERT BALL MD Admitting normal February 11, 2023 8:47:04 PM UTC February 17, 2023 1:22:00 PM UTC [id number] on February 11, 2023 8:47:04 PM [facility]
--- OUTSIDE RECORDS SUMMARY | 2023-10-17 11:09 | XMS_ITS | Continuity of Care Document ---
Author Organization [facility] Phone Care Team Providers Care Chemical Production Machine Operator Name Role Phone LIZZY JONES Admitting LIZZY JONES Primary Care LIZZY JONES Primary Attending [phone] LIZZY JONES Unavailable RESULTS Patient: CODY DIANA Date of : February 28 5 LABORATORY RESULTS Information is not available LABORATORY NARRATIVE RESULTS Information is not available RADIOLOGY RESULTS ORDER 100: MRI EXTREM UPR MAXIME INT RT WO (LOINC: 96109-1) ORDER DATE: February 17, 2023 1:36:00 PM [facility] PERFORMING LAB: [address] [id number] Final Result Date: February 17, 2023 3:29:[address] [place] [address] Name: ADALGISA ROSS Exam Date: 02/17/2023 : 1950 Age 72 years Gender: F Physician: LIZZY JONES Facility: [facility] Facility HSV: Outpatient Exam: MRI EXTREM UPR JOINT RT WO FINAL REPORT CLINICAL HISTORY: acute pain in right shoulder FINDINGS: Multi planar MR imaging of the right shoulder was performed. There is complete disruption and proximal retraction of the supraspinatus tendon. Tendon is retracted 4.3 cm. There is superior subluxation of the humeral head. There is heterogeneous thickening of the subscapularis tendon consistent with tendinosis. There is a large amount of fluid in the subcoracoid recess. The anterior and posterior glenoid michaela appear intact. The biceps tendon is mildly medially subluxed. The acromioclavicular joint appears intact. IMPRESSION: Complete disruption and proximal retraction of the supraspinatus tendon. Tendinosis of the subscapularis tendon. Mild medial subluxation of the biceps tendon. Reviewed, Interpreted and Dictated by Gabriel Luz MD Transcribed by Yudi Castellanos Authenticated and [facility] Dictated By: Gabriel Luz Transcribed By: Transcribed On: 02/17/2023 10:29 AM Electronically signed by: Gabriel Luz 02/17/2023 Thank you for referring ADALGISA ROSS to [facility]. Legally authenticated by STIVEN Shelton MD 2023-02-17 10:29:18 PATHOLOGY NARRATIVE RESULTS Information is not available MICROBIOLOGY RESULTS No Micro Labs/Results Exist for Patient BLOOD ADMIN RESULTS Information is not available MEDICATIONS HOME MEDICATIONS Status RXNORM Medication Dose [...] Description Effective Dates Offered Cessation Comment UpdatedBy [id number] Smoking Status Unknown If Ever Smoked SOCIAL [...] M25.511 Admission February 17, 2023 1:22:[address] [address] Discharge February 17, 2023 1:22:00 PM [facility] DISCHARGED TO HOME OR SELF CARE ENCOUNTER DIAGNOSES Notes information is not teresa ilable. Code System Diagnosis Onset Date Diagnosis information is not available. ABSTRACT DIAGNOSES Code System Diagnosis Updated By M25.511 ICD10 PAIN IN RIGHT SHOULDER [id number] on February 18, 2023 4:52:35 PM [facility] M25.511 ICD10 PAIN IN RIGHT SHOULDER [id number] on February 18, 2023 4:52:35 PM UTC CARE TEAM Care Chemical Production Machine Operator Role LIZZY JONES Admitting LIZZY JONES Primary Care LIZZY JONES Primary Attending LIZZY JONES Referring CARE TEAM CARE construction crew member Role on Team Status Start Date End Date Update d By ROBERT BALL MD PCP normal February 11, 2023 8:47:04 PM [place] February 17, 2023 5:00:00 AM [facility] [id number] on February 11, 2023 8:47:04 PM [facility] ROBERT BALL MD Referring normal February 11, 2023 8:47:04 PM [facility] February 17, 2023 5:00:00 AM [facility] [id number] on February 11, 2023 8:47:04 PM [facility] ROBERT BALL MD Attending normal February 11, 2023 8:47:04 PM [facility] February 17, 2023 5:00:00 AM [facility] [id number] on February 11, 2023 8:47:04 PM [facility] ROBERT BALL MD Admitting normal February 11, 2023 8:47:04 PM [facility] February 17, 2023 5:00:00 AM [place] [id number] on February 11, 2023 8:47:04 PM [facility]
--- NOTE | 2023-10-17 11:10 | PC.NURSE ---
fsbs 74
--- NOTE | 2023-10-17 11:11 | ECG_ITS ---
APPROVED REPORT Exam: Resting ECG HR:55 bpm ECG Measurements Heart Rate 55 AXES WI 194 P 47 QRSd 73 QRS 18 QT 404 T 28 QTc 393 Conclusion SINUS BRADYCARDIA WITH OCCASIONAL ECTOPIC PREMATURE COMPLEXES LOW QRS VOLTAGE IN PRECORDIAL LEADS [QRS DEFLECTION < 1.0 mV IN CHEST LEADS] ST ELEVATION, CONSIDER ANTERIOR INJURY [MARKED ST ELEVATION W/O NORMALLY INFLECTED T-WAVE IN V2-V5] ST ELEVATION, CONSIDER INFERIOR INJURY [MARKED ST ELEVATION W/O NORMALLY INFLECTED T-WAVE IN II/aVF] ACUTE [place] UNCONFIRMED REPORT Electronically signed by : Cortez Boston, 10/17/2023 14:51:59
--- NOTE | 2023-10-17 11:18 | PC.NURSE ---
ptis diaphoretic,weak,dizzy. @ bedside
--- NOTE | 2023-10-17 11:25 | PC.NURSE ---
Pt placed on zoll and STEMI pads @
--- NOTE | 2023-10-17 11:30 | PC.NURSE ---
1121- Paged Dr. Collado 1122- Dr. Boston s/w Dr. Collado, shared images 1125- Paged STEMI alert per MDs, House notified 1130- Cath Team activated
[2023-10-17] MEDS: ASPIRIN 81MG CHEWABLE TABLET 324 MG PO (11:32)
[2023-10-17] MEDS: HEPARIN SODIUM 5,000 UNIT/ML VIAL 10000 UNIT IV (11:32)
[2023-10-17] MEDS: TICAGRELOR 90MG TABLET 180 MG PO (11:32)
--- NOTE | 2023-10-17 11:32 | ED_ITS ---
Discharge Plan Disposition Patient Disposition: Admitted Prescriptions Prescriptions: No Action atorvastatin 80 mg tablet 80 mg PO DAILY venlafaxine 150 MG capsule,extended release 24hr 150 mg PO DAILY levothyroxine 150 MCG tablet 150 mcg PO DAILY bisoprolol fumarate 5 MG tablet 5 mg PO DAILY methylprednisolone [Medrol] 4 mg tablet 4 mg PO DAILY Qty: 30 0RF benzonatate 100 mg capsule 100 mg PO TID PRN (Reason: cough) Qty: 20 0RF doxycycline hyclate [Vibramycin] 100 mg capsule 100 mg PO BID Qty: 20 0RF albuterol sulfate [ProAir HFA] 90 mcg/actuation HFA aerosol inhaler 2 inh inhalation Q6H PRN (Reason: shortness of breath or wheezing) Qty: 6.7 0RF Referrals Follow up/Referrals: Castro Sanchez MD [Primary Care Provider] - See instructions Clinical Impressions Clinical Impression: ST elevation PR (STEMI), Bradycardia Print Language Print Language: Ivorian Discharge ED Provider: Yuliya Boston General Adult HPI General Chief complaint: Weakness Stated complaint: nauseous, weak, clammy, hot Time Seen by Provider: 10/17/23 11:15 Mode of Arrival: Wheelchair Source of Information: Patient and Relative Limitations: No Limitations Description of Symptoms (Recalled from ER Triage Doc. by RN): weak,diaphoretic, History of Present Illness HPI narrative: Patient is a 73-year-old female presenting today with acute sudden onset of weakness and diaphoresis. She did have some subsequent need for diarrhea after this occurred she was standing at [employer] states that she was in her normal state of health and this hit her all of a sudden. She does have a history of hypertension hyperlipidemia no history of coronary artery disease has never had a heart catheter or stress test in the past. Denies any chest pain or shortness of breath or any type of chest discomfort. Just feels extremely weak and diaphoretic. Related Data Home Medications ?Medication ?Instructions ?Recorded ?Confirmed levothyroxine 150 mcg tablet 150 mcg PO DAILY tyhyroid 08/17/17 05/12/21 venlafaxine 150 mg 150 mg PO DAILY Depression 08/17/17 05/12/21 capsule,extended release 24 hr atorvastatin 80 mg tablet 80 mg PO DAILY Cholesterol 08/18/18 05/12/21 bisoprolol fumarate 5 mg tablet 5 mg PO DAILY High blood pressure 01/22/20 05/12/21 Previous Rx's ?Medication ?Instructions ?Recorded albuterol sulfate 90 mcg/actuation 2 inh inhalation Q6H PRN shortness 04/15/22 aerosol inhaler (ProAir HFA) of breath or wheezing #6.7 grams benzonatate 100 mg capsule 100 mg PO TID PRN cough #20 caps 04/15/22 doxycycline hyclate 100 mg capsule 100 mg PO BID #20 caps 04/15/22 (Vibramycin) methylprednisolone 4 mg tablet 4 mg PO DAILY #30 tabs 04/15/22 (Medrol) Allergies Allergy/AdvReac Type Severity Reaction Status Date / Time No Known Allergies Allergy Verified 02/09/20 13:35 [facility] Disclaimer: The information contained in this section may have been updated after the patient was seen, as this information can be updated by other users. Social History Smoking Status: Never smoker alcohol intake: never substance use type: denies use current occupational status: retired Travel in the last 8 weeks: None household members: none housing: house current occupational exposures/hazards: No caffeine: Yes ROS Obtained: Yes All systems reviewed & no additional complaints except as documented Physical Exam General General appearance: other (Ill-appearing diaphoretic) Respiratory Respiratory exam: Present normal lung sounds bilaterally Cardiovascular Cardiovascular exam: Present bradycardia and other (Cool extremities) Abdominal Exam Abdominal exam: Absent soft or distention Neurological Exam Neurological exam: Present oriented X3, CN II-XII intact and normal gait; Absent motor sensory deficit Medical Decision Making Scott Inquiry Pt receiving controlled substance: No Vital Signs: 10/17/23 10:50 Temperature 97.9 F Temperature Source Oral Pulse Rate [Right] 52 L Respiratory Rate 22 Blood Pressure [Right Arm] 107/68 L Blood Pressure Mean [Right Arm] 81 02 Sat by Pulse Oximetry 95 Oxygen Delivery Method Room Air Orders (Tests/Meds): ED MEDICATIONS Generic Name Dose Route Start Last Admin Trade Name Freq PRN Reason Stop Dose Admin Aspirin 324 mg 10/17/23 11:24 Aspirin 81mg Chewable Tablet PO 10/17/23 11:25 ONCE ONE Heparin Sodium (Porcine) 10,000 unit 10/17/23 11:24 10/17/23 11:28 Heparin 1,000 Units/Ml 10ml Vial (R[facility] [employer] [facility]) IV 10/17/23 11:25 Not Given ONCE ONE Heparin Sodium (Porcine) 10,000 unit 10/17/23 11:27 Heparin Sodium 5,000 Unit/Ml Vial IV 10/17/23 11:28 ONCE ONE Ticagrelor 180 mg 10/17/23 11:24 Ticagrelor 90mg Tablet PO 10/17/23 11:25 ONCE ONE ORDERS Category Date Time Status POCUS Point of Care (ER Only) Stat Exams 10/17/23 11:15 Ordered ECG Data Tracing #1: I reviewed this ECG and interpreted as documented below: Ventricular to 54 sinus rhythm no definitive dropped P waves or high degree AV block there are ST elevations in leads III and aVF that are 1 mm and V5 and V6 no reciprocal changes noted there is a normal axis no other significant conduction abnormalities noted Medical Decision Narrative: Very poor appearing 73-year-old female present today with sudden weakness and diaphoresis with an EKG that is concerning for an inferior STEMI. No significant reciprocal changes but given her appearance and the fact that these ST elevations are new in comparison with old EKG we will treat this as a STEMI. I discussed the case with Dr. Collado who agrees and will take the patient to the [facility]. Patient has pads that are placed on her she has not had any high degree block at the moment blood pressure does appear to be stable her mentation has maintained but she looks very ill in the ED. Patient's neurologic exam is normal no alternative explanation at the moment she does not have any vertiginous or posterior circulation or strokelike symptoms. Aspirin Brilinta and heparin have been administered Dr. Celestin will take the patient to the [facility] I would also discussed the case with hospital medicine for further evaluation Procedures Miscellaneous Procedure Procedure Performed: Limited cardiac ultrasound Indication: Abnormal EKG Identified structures: The heart was visualized in the parasternal long axis, parastenal short axis, apical four chamber and subxyphiod views. The IVC was visualized in the short axis and long axis at its entry into the right atrium. Findings: Normal LVEF no pericardial effusion no significant right heart strain no definitive regional wall motion abnormalities Impression: Unremarkable limited cardiac ultrasound Images were saved to permanent archive The study was technically adequate CPT: 43176-85 This study was performed by me, and I personally interpreted all images/videos. Based on my clinical judgement, these images were adequate and did necessitate further imaging. Critical Care Critical Care Time Critical Care Time: Yes Attestation: On 10/17/23, the high probability of a clinically significant, sudden or life threatening deterioration of the following system(s) required my full and direct attention, intervention and personal management. The time I documented below is in addition to time spent performing reported procedures but includes the following listed in this critical care notation. Total Time Total Critical Care Time: 35
--- NOTE | 2023-10-17 11:34 | PC.NURSE ---
Lab called to let them know of STEMI alert labs
--- NOTE | 2023-10-17 11:37 | XR_ITS ---
PROCEDURE INFORMATION: Exam: XR Chest Exam date and time: 10/17/2023 11:36 AM Age: 73 years old Clinical indication: Other: Stemi alert TECHNIQUE: Imaging protocol: Radiologic exam of the chest. Views: 1 view. COMPARISON: CR XR CHEST 2V 04/15/2022 10:18 AM FINDINGS: Lungs: Subsegmental atelectasis left lung base. Findings stable. Pleural spaces: Unremarkable. No pleural effusion. No pneumothorax. Heart/Mediastinum: Unremarkable. No cardiomegaly. Diaphragm: Eventration right hemidiaphragm again demonstrated. Bones/joints: Unremarkable. IMPRESSION: No evidence of acute cardiopulmonary disease.
--- NOTE | 2023-10-17 11:37 | PC.NURSE ---
Dr. Darvin jett hospitalist with Dr. Avila
[2023-10-17 11:42] LABS: Basophils # 0.1 K/mm3 (0-0.2); Basophils % 1.7 % (0.1-2.0); Eosinophils # 0.3 K/mm3 (0.0-0.4); Eosinophils % 3.5 % (0.1-12.0); Hematocrit 47.9 % (37.0-47.0); Hemoglobin 14.5 g/dL (12.2-16.2); Lymphocytes # 1.8 K/mm3 (0.7-4.5); Lymphocytes % 21.2 % (10-50); Mean Corpuscular HGB Conc 30.2 g/dL (31.8-35.4); Mean Corpuscular Hemoglobin 28.7 pg (27.0-31.2); Mean Corpuscular Volume 94.9 fl (81-99); Mean Platelet Volume 7.7 fl (7.4-10.4); Monocytes # 0.4 K/mm3 (0.1-1.0); Monocytes % 5.1 % (1.7-9.3); Neutrophils # 5.9 K/mm3 (1.8-7.8); Neutrophils % 68.6 % (37.0-80.0); Platelet Count 311 K/mm3 (142-424); Red Blood Count 5.05 M/mm3 (4.20-5.40); Red Cell Distribution Width 14.9 % (11.5-17.5); White Blood Count 8.6 K/mm3 (4.8-10.8)
[2023-10-17 11:44] LABS: Chloride 108 mmol/L (98-107)
[2023-10-17 11:45] LABS: Sodium 138 mmol/L (136-145)
[2023-10-17 11:47] LABS: Alanine Aminotransferase 38 U/L (12-78); Aspartate Amino Transferase 46 U/L (14-36); Blood Urea Nitrogen 23 mg/dl (7-17); Carbon Dioxide 26 mmol/L (22.0-30.0); Creatinine Clearance Estimated 83 mL/min (50-200); Estimated Glomerular Filt Rate 71 ml/min (>60); GFR (African American) 86 ML/MIN (>60)
[2023-10-17 11:48] LABS: Albumin/Globulin Ratio 1.6 (1.1-1.8); Alkaline Phosphatase 100 U/L (38-126); Bilirubin,Total 0.8 mg/dl (0.2-1.3); Calcium 9.4 mg/dl (8.4-10.2); Globulin 2.5 g/dL (1.3-3.2); Glucose 65 mg/dl (74-100); INR 0.96 (0.9-1.1); Prothrombin Time 10.8 seconds (10.1-12.5); Total Protein,Serum 6.5 g/dl (6.3-8.2)
--- NOTE | 2023-10-17 11:51 | PC.NURSE ---
AND STAFF AT
[2023-10-17] MEDS: ONDANSETRON 4MG/2ML VIAL 4 MG IV (11:56)
[2023-10-17 11:57] LABS: NT Pro Brain Natriuretic Pep. 686 pg/mL (0-125)
--- NOTE | 2023-10-17 11:59 | PC.NURSE ---
patient going to [facility] at this time
[2023-10-17 12:00] LABS: Troponin I < 0.01 ng/ml (0.00-0.034)
--- NOTE | 2023-10-17 12:16 | PC.NURSE ---
PT TO ROOM 217, ALL STAFF NOTIFIED
[2023-10-17] MEDS: MIDAZOLAM HCL 1MG/1ML 5ML VIAL 1 MG IV (12:37)
[2023-10-17] MEDS: IOPAMIDOL-370 (76%);100ML BOTTLE 120 ML IV (12:46)
[2023-10-17] MEDS: FENTANYL 100MCG/2ML VIAL 50 MCG IV (12:47)
[2023-10-17] MEDS: VERAPAMIL 2.5MG/ML 2ML VIAL 2.5 MG IV (12:48)
[2023-10-17] MEDS: LIDOCAINE 1% 10ML MDV 20 ML IJ (12:49)
[2023-10-17] MEDS: diphenhydrAMINE 50MG/ML VIAL 50 MG IV (12:49)
[2023-10-17] MEDS: NITROGLYCERIN 800MCG/8ML SYR (CATH LAB) 800 MCG IA (12:50)
[2023-10-17] MEDS: HEPARIN 1,000 UNITS/500ML NS (CATH LAB) 3000 UNIT IV (12:51)
--- NOTE | 2023-10-17 13:54 | PC.NURSE ---
Per [facility], Start Nitro gtt if SBP greater than 140 x2.
[2023-10-17] MEDS: ACETAMINOPHEN 325MG TAB 650 MG PO (14:12)
--- NOTE | 2023-10-17 14:16 | HMH.PHAINT1 ---
Pharmacy Intervention Comments: HOME MEDICATION LIST VERIFIED USING LIST FROM OUTPATIENT PHARMACY AND PT INTERVIEW
[2023-10-17] MEDS: HEPARIN SODIUM 5,000 UNIT/ML VIAL 5000 UNIT SQ ×2 (14:17→22:04)
[2023-10-17 15:50] LABS: Troponin I 0.02 ng/ml (0.00-0.034)
--- NOTE | 2023-10-17 17:04 | P.HP_ITS ---
History of Present Illness *Admission Date: 10/17/23 *Reason for visit:: diaphoresis *History of present illness: Patient is a 73-year-old female with past medical history of hyperlipidemia hypertension hypothyroidism who presents to the hospital as an NSTEMI call. She was at [facility] today and was noted to have acute onset of generalized weakness, diaphoresis. Patient denied shortness of breath chest pain. Patient was noted to be anxious and diaphoretic. Patient denied dizziness lightheadedness. Patient EKG was concerning for ischemia, code STEMI was called and patient was taken to [facility]. Patient was noted to have acute Takotsubo cardiomyopathy with regional wall motion abnormality compatible with Takotsubo cardiomyopathy. Patient did not have any stenting performed. [facility] Disclaimer: The information contained in this section may have been updated after the patient was seen, as this information can be updated by other users. Social History Smoking Status: Never smoker alcohol intake: never substance use type: denies use current occupational status: retired Travel in the last 8 weeks: None household members: none housing: house current occupational exposures/hazards: No caffeine: Yes Review of Systems Review of Systems Review of systems:: pertinent systems reviewed and negative unless documented below Meds Home Medications and Allergies Home Medications ?Medication ?Instructions ?Recorded ?Confirmed ?Type levothyroxine 150 mcg tablet 150 mcg PO AM 08/17/17 10/17/23 History venlafaxine 150 mg 300 mg PO DAILY 08/17/17 10/17/23 History capsule,extended release 24 hr atorvastatin 80 mg tablet 80 mg PO HS 08/18/18 10/17/23 History bisoprolol fumarate 5 mg tablet 2.5 mg PO DAILY 01/22/20 10/17/23 History trazodone 100 mg tablet 100 mg PO HS 10/17/23 10/17/23 History New Prescriptions to Start Prescriptions: Allergies Allergy/AdvReac Type Severity Reaction Status Date / Time No Known Allergies Allergy Verified 02/09/20 13:35 Exam Data for Last 24 hours Vital signs and Labs for Last 24 Hours: Temp Pulse Resp BP Pulse Ox O2 Del Method O2 Flow Rate 97.7 F 50 L 18 111/58 L 98 Room Air 2 10/17/23 16:00 10/17/23 16:00 10/17/23 15:55 10/17/23 15:55 10/17/23 15:55 10/17/23 16:55 10/17/23 12:02 Laboratory Results - last 24 hr 10/17/23 11:11: WBC 8.6, RBC 5.05, Hgb 14.5, Hct 47.9 H, MCV 94.9, MCH 28.7, MCHC 30.2 L, RDW 14.9, Plt Count 311, MPV 7.7, Neut % (Auto) 68.6, Lymph % (Auto) 21.2, [place] % (Auto) 5.1, Eos % (Auto) 3.5, Baso % (Auto) 1.7, Neut # (Auto) 5.9, Lymph # (Auto) 1.8, [place] # (Auto) 0.4, Eos # (Auto) 0.3, Baso # (Aut o) 0.1, PT 10.8, INR 0.96, Sodium 138, Potassium 4.0, Chloride 108 H, Carbon Dioxide 26, Anion Gap 8.0, BUN 23 H, Creatinine 0.80, Estimated Creat Clear 83, Estimated GFR 71, Est GFR ( Amer) 86, Glucose 65 L, Calcium 9.4, Total Bilirubin 0.8, AST 46 H, ALT 38, Alkaline Phosphatase 100, Troponin I < 0.01, NT-Pro-B Natriuret Pep 686 H, Total Protein 6.5, Albumin 4.0, Globulin 2.5, Albumin/Globulin Ratio 1.6 10/17/23 15:00: Troponin I 0.02 I & O for Last 24 hours: Intake & Output 10/14/23 10/15/23 10/16/23 10/17/23 23:59 23:59 23:59 23:59 Weight 101.605 kg Constitutional Constitutional: no acute distress *Routine HEENT Exam Head: Present normocephalic Eye: Present EOMI and PERRL ENT: Present mucous membranes moist *Routine Neck Exam Neck: Present supple; Absent lymphadenopathy *Routine Respiratory Exam Respiratory: Present CTA bilaterally *Routine Cardiovascular Exam Cardiovascular: Present RRR *Routine Abdominal Exam Abdominal: Present soft and normoactive bowel sounds; Absent tenderness *Routine Rectal Exam Rectal:: deferred *Routine Genitalia Exam Genitalia:: deferred *Routine Extremities Exam Extremities: Absent cyanosis, clubbing or edema *Routine Skin Exam Skin: Present warm; Absent rash *Routine Neurological Exam Neurological: Present alert and oriented X3 Assessment and Plan *Assessment and plan (1) Bradycardia: Status: Acute Category: Medical Code(s): R00.1 - Bradycardia, unspecified (2) ST elevation [place] (STEMI): Status: Acute Category: Medical Code(s): I21.3 - ST elevation (STEMI) myocardial infarction of unspecified site (3) Hypothyroid: Status: Acute Category: Medical Code(s): E03.9 - Hypothyroidism, unspecified (4) HTN (hypertension): Status: Acute Category: Medical Code(s): I10 - Essential (primary) hypertension (5) HLD (hyperlipidemia): Status: Acute Category: Medical Code(s): E78.5 - Hyperlipidemia, unspecified Plan Patient is a 73-year-old female with past medical history of hyperlipidemia hypertension hypothyroidism who presents to the hospital as an NSTEMI call. She was at [facility] today and was noted to have acute onset of generalized weakness, diaphoresis. Patient denied shortness of breath chest pain. Patient was noted to be anxious and diaphoretic. Patient denied dizziness lightheadedness. Patient EKG was concerning for ischemia, code STEMI was called and patient was taken to [facility]. Patient was noted to have acute Takotsubo cardiomyopathy with regional wall motion abnormality compatible with Takotsubo cardiomyopathy. Patient did not have any stenting performed. Assessment and plan Acute onset generalized weakness, diaphoresis likely secondary to acute Takotsubo cardiomyopathy Per cardiology started on nitroglycerin drip if SBP > 140 Check echocardiogram Consult cardiology Monitor on cardiac telemetry Chest x-ray reviewed-no cardiopulmonary acute process History of hypertension History of hyperlipidemia History of hypothyroidism Resume home atorvastatin, bisoprolol, levothyroxine DVT prophylaxis-heparin
[2023-10-17 18:00] LABS: Troponin I 0.02 ng/ml (0.00-0.034)
[2023-10-17] MEDS: HYDROCODONE/APAP 5/325 MG TABLET 1 TAB PO (20:18)
[2023-10-18] VITALS (9 sets, daily range): BP systolic 103–128; BP diastolic 52–69; PULSE 55–64; RESP 18–20; TEMP 36.7–37.2; O2SAT 91–95; BMI 41.1
--- NOTE | 2023-10-18 05:18 | PC.NURSE ---
Patient has had a good night. The patient only complaint this shift has been a headache. The headache was controlled with PRN medication. Patient right radial cath site does have some drainage too it and it was marked with a sharped, it has not gone around the boarders since then. Patient has been up to the bathroom a couple times this shift with no issues. Patient BP has stayed below 140 SBP all shift. Daughter remains at bedside no other complaints
[2023-10-18] MEDS: HEPARIN SODIUM 5,000 UNIT/ML VIAL 5000 UNIT SQ (05:29)
--- NOTE | 2023-10-18 05:56 | CA_ITS ---
APPROVED REPORT EXAM: Comprehensive 2D, Doppler, and color-flow Echocardiogram Neurological Surgeon: Gema Pascal CRT Ht: 5 ft 4 in Wt: 247lbs BSA: 2.14 BP: 111/58 mmHg Indications: STEMI, Hyperlipidemia, Hypertension/HDD, Takotsubo cm on cath TDE due to body habitus 2D Dimensions Left Atrium 4.49 cm LA Volume 52.70 mL LVOT 1.95 cm (M/F) 1.5-2.5 LA Volume Index 24.60 mL/m2 (M/F) 16-34 EF AP4 43.50 % GL Strain -1.2 % M-Mode Dimensions RVDd 2.62 cm (0.9-2.6) LVDd 4.47 cm (3.5-5.7) Ao Diam 4.65 cm (2.0-3.7) LVDs 2.06 cm (3.5-5.7) IVSd 1.39 cm (0.6-1.1) PWd 0.58 cm (0.6-1.1) EF (Teich) 84.90% FS 53.90% EDV (Teich) 91.00 mL ESV (Teich) 13.70 mL LV Diastology E Decel Time 264 (160-240 msec) E/A Ratio 0.69 MED E' 4.8 (>= 7 cm/sec) MED A' 12.50 cm/s E'/MED E' Ratio 15.73 (<= 14) LAT E' 8.6 (>= 10 cm/sec) LAT A' 13.00 cm/s E/LAT E' Ratio 8.78 (<= 14) Aortic Valve AoV Peak Sean. 148.0 (50-130 cm/s) AO Peak GR. 8.80 mmHg Mitral Valve MV E Max Sean. 76.0 (40-130 cm/s) MV A Velocity 109.0 (40-130 cm/s) E/A Ratio 0.69 MV Decel. Time 264 (160-240 ms) Tricuspid Valve TR P. Velocity 247.00 cm/s RAP Estimate 10.00 mmHg RVSP 34.40 mmHg Left Ventricle The left ventricle is normal size. The left ventricular systolic function is normal. The left ventricular ejection fraction is within the normal range. There is increased LV wall thickness. There is normal LV segmental wall motion. The left ventricular diastolic function is normal. LVEF is 65%. Right Ventricle The right ventricle is normal size. The right ventricular systolic function is normal. Atria The left atrium size is normal. The right atrium size is normal. The interatrial septum is not well-visualized. Aortic Valve The aortic valve is mildly thickened. There is no aortic valvular stenosis. Mild aortic regurgitation. Mitral Valve The mitral valve leaflets are normal in structure. No evidence of mitral valve stenosis. Trace mitral regurgitation. Tricuspid Valve The tricuspid valve leaflets are thin and pliable. Trace tricuspid regurgitation. RVSP is 20-25 mmHg. Pulmonic Valve The pulmonary valve is normal in structure. Mild pulmonic regurgitation. Great Vessels The aortic root is normal in size. The ascending aorta is normal in size. IVC is normal in size and collapses >50% with inspiration. Pericardium There is no pericardial effusion. Other Information Study Quality: Technically Difficult Conclusion Technically difficult study due to poor acoustic windows. Normal biventricular systolic function. Mild AI, mild PI. Electronically signed by : Chely Gonzalez MD 10/19/2023 11:10:19
[2023-10-18 06:33] LABS: Chloride 107 mmol/L (98-107); Potassium 4.1 mmoL/L (3.5-5.1); Sodium 135 mmol/L (136-145)
[2023-10-18 06:36] LABS: Basophils # 0.1 K/mm3 (0-0.2); Basophils % 1.2 % (0.1-2.0); Blood Urea Nitrogen 20 mg/dl (7-17); Creatinine Clearance Estimated 45 mL/min (50-200); Eosinophils # 0.3 K/mm3 (0.0-0.4); Estimated Glomerular Filt Rate 82 ml/min (>60); GFR (African American) 100 ML/MIN (>60); Hematocrit 45.1 % (37.0-47.0); Hemoglobin 13.9 g/dL (12.2-16.2); Lymphocytes # 1.8 K/mm3 (0.7-4.5); Lymphocytes % 24.2 % (10-50); Mean Corpuscular HGB Conc 30.9 g/dL (31.8-35.4); Mean Corpuscular Hemoglobin 29.6 pg (27.0-31.2); Mean Corpuscular Volume 95.7 fl (81-99); Mean Platelet Volume 7.7 fl (7.4-10.4); Monocytes # 0.4 K/mm3 (0.1-1.0); Monocytes % 5.6 % (1.7-9.3); Neutrophils # 4.9 K/mm3 (1.8-7.8); Platelet Count 270 K/mm3 (142-424); Red Blood Count 4.71 M/mm3 (4.20-5.40); Red Cell Distribution Width 14.9 % (11.5-17.5); White Blood Count 7.5 K/mm3 (4.8-10.8)
[2023-10-18 06:37] LABS: Anion Gap 7.1 mEq/L (5-15); Calcium 8.9 mg/dl (8.4-10.2); Carbon Dioxide 25 mmol/L (22.0-30.0); Glucose 90 mg/dl (74-100)
[2023-10-18] MEDS: LEVOTHYROXINE 150MCG (0.15MG)TAB 150 MCG PO (08:52)
[2023-10-18] MEDS: BISOPROLOL 5MG TABLET 2.5 MG PO (08:52)
[2023-10-18] MEDS: VENLAFAXINE XR 75MG CAPSULE 300 MG PO (08:52)
--- NOTE | 2023-10-18 11:45 | EXP.CARD.CON ---
History of Present Illness History of Present Illness Consult date: 10/18/23 Requesting physician: Alex Avila Chief complaint: weakness, nausea, and diaphoresis History of present illness: 73 year old white female with past medical hx of HTN and HLD presented to ER yesterday with complaint of sudden onset of nausea, generalized weakness and diaphoresis while at [employer]. Upon presentation to emergency department EKG was concerning for STEMI per ER doctor and patient was taken to [facility]. Patient had no angiographic evidence of atherosclerotic plaque accompanied by slow flow down the LAD consistent with acute Takotsubo cardiomyopathy. Patient was started on nitroglycerin drip and admitted for further observation. This morning patient is off of nitro drip resting comfortably. Denies chest pain or shortness of breath. Echocardiogram is pending. Morning labs as follow: WBC 7.5, hemoglobin 13.9, sodium 135, potassium 4.1, creatinine 0.7, serial troponins negative, proBNP 686. Chest x-ray negative for acute cardiopulmonary process [facility] Disclaimer: The information contained in this section may have been updated after the patient was seen, as this information can be updated by other users. Social History Smoking Status: Never smoker alcohol intake: never substance use type: denies use current occupational status: retired Travel in the last 8 weeks: None household members: none housing: house current occupational exposures/hazards: No caffeine: Yes Review of Systems Review of Systems Review of systems:: pertinent systems reviewed and negative unless documented below Constitutional Constitutional: Reports weakness *Cardiovascular Cardiovascular: Denies chest pain, Reports diaphoresis and Denies dyspnea *Respiratory Respiratory: Denies dyspnea *Gastrointestinal Gastrointestinal: Reports nausea *Neurologic Neurologic: Reports weakness Exam Data for Last 24 hours Vital signs and Labs for Last 24 Hours: Temp Pulse Resp BP Pulse Ox O2 Del Method O2 Flow Rate 98.9 F 55 L 18 117/60 93 L Room Air 2 10/18/23 08:00 10/18/23 10:00 10/18/23 10:00 10/18/23 10:00 10/18/23 10:10/18/23 10:10/17/23 12:02 Laboratory Results - last 24 hr 10/17/23 11:11: PT 10.8, INR 0.96, Sodium 138, Potassium 4.0, Chloride 108 H, Carbon Dioxide 26, Anion Gap 8.0, BUN 23 H, Creatinine 0.80, Estimated Creat Clear 83, Estimated GFR 71, Est GFR ( Amer) 86, Glucose 65 L, Calcium 9.4, Total Bilirubin 0.8, AST 46 H, ALT 38, Alkaline Phosphatase 100, Troponin I < 0.01, NT-Pro-B Natriuret Pep 686 H, Total Protein 6.5, Albumin 4.0, Globulin 2.5, Albumin/Globulin Ratio 1.6 10/17/23 15:00: Troponin I 0.02 10/17/23 17:27: Troponin I 0.02 10/18/23 05:55: WBC 7.5, RBC 4.71, Hgb 13.9, Hct 45.1, MCV 95.7, MCH 29.6, MCHC 30.9 L, RDW 14.9, Plt Count 270, MPV 7.7, Neut % (Auto) 65.0, Lymph % (Auto) 24.2, [place] % (Auto) 5.6, Eos % (Auto) 4.0, Baso % (Auto) 1.2, Neut # (Auto) 4.9, Lymph # (Auto) 1.8, [place] # (Auto) 0.4, Eos # (Auto) 0.3, Baso # (Auto) 0.1, Sodium 135 L, Potassium 4.1, Chloride 107, Carbon Dioxide 25, Anion Gap 7.1, BUN 20 H, Creatinine 0.70, Estimated Creat Clear 45, Estimated GFR 82, Est GFR ( Amer) 100, Glucose 90 D, Calcium 8.9 I & O for Last 24 hours: Intake & Output 10/15/23 10/16/23 10/17/23 10/18/23 23:59 23:59 23:59 23:59 Intake Total 240 / 340 340 / 340 Output Total 0 / 0 0 / 0 Balance 240 / 340 340 / 340 Weight 224 lb 247 lb 1.6 oz Constitutional Constitutional: no acute distress *Routine Respiratory Exam Respiratory: Present CTA bilaterally and symmetric chest movement *Routine Cardiovascular Exam Cardiovascular: Present RRR, Normal S1 and Normal S2 *Routine Abdominal Exam Abdominal: Present soft and normoactive bowel sounds; Absent tenderness *Routine Extremities Exam Extremities: Present full ROM and normal capillary refill; Absent edema *Routine Skin Exam Skin: Present intact, dry and warm Detailed Neck Exam: Thyroids Thyroid: Absent bruit Meds Home Medications and Allergies Home Medications ?Medication ?Instructions ?Recorded ?Confirmed ?Type levothyroxine 150 mcg tablet 150 mcg PO AM 08/17/17 10/17/23 History venlafaxine 150 mg 300 mg PO DAILY 08/17/17 10/17/23 History capsule,extended release 24 hr atorvastatin 80 mg tablet 80 mg PO HS 08/18/18 10/17/23 History bisoprolol fumarate 5 mg tablet 2.5 mg PO DAILY 01/22/20 10/17/23 History trazodone 100 mg tablet 100 mg PO HS 10/17/23 10/17/23 History New Prescriptions to Start Prescriptions: Allergies Allergy/AdvReac Type Severity Reaction Status Date / Time No Known Allergies Allergy Verified 02/09/20 13:35 Assessment and Plan *Assessment and plan (1) HLD (hyperlipidemia): Status: Acute Category: Medical Code(s): E78.5 - Hyperlipidemia, unspecified (2) HTN (hypertension): Status: Acute Category: Medical Code(s): I10 - Essential (primary) hypertension (3) ST elevation [place] (STEMI): Status: Acute Category: Medical Code(s): I21.3 - ST elevation (STEMI) myocardial infarction of unspecified site (4) Takotsubo cardiomyopathy: Status: Acute Category: Medical Code(s): I51.81 - Takotsubo syndrome Plan STEMI Takotsubo cardiomyopathy Left heart cath 10/17/2023 showed no angiographic evidence of atherosclerotic plaque companied by slow flow down the LAD consistent with acute Takotsubo cardiomyopathy Echo shows a normal EF, official read is pending Continue atorvastatin 40mg po daily and bisoprolol 2.5mg po daily CV summary 10/18/2023: Patient is cv stable for dc home. please have patient follow up in [facility] in 1 week.
[2023-10-18 15:20] LABS: CATHL Activated Clotting Time 260 SEC (74-125)
--- NOTE | 2023-10-18 16:15 | P.DS_ITS ---
General Admission date:: 10/17/23 Discharge date: 10/18/23 HPI HPI HPI: Patient is a 73-year-old female with past medical history of hyperlipidemia hypertension hypothyroidism who presents to the hospital as an NSTEMI call. She was at [facility] today and was noted to have acute onset of generalized weakness, diaphoresis. Patient denied shortness of breath chest pain. Patient was noted to be anxious and diaphoretic. Patient denied dizziness lightheadedness. Patient EKG was concerning for ischemia, code STEMI was called and patient was taken to [facility]. Patient was noted to have acute Takotsubo cardiomyopathy with regional wall motion abnormality compatible with Takotsubo cardiomyopathy. Patient did not have any stenting performed. Hospital Course Hospital Course Hospital Course: Patient admitted to hospital with weakness, and diagnosed with Takotsubo cardiomyopathy. Patient had cardiac catheterization done during hospitalization showing Takotsubo cardiomyopathy. Patient also had echocardiogram done during hospitalization showing normal ejection fraction. Patient evaluated by [facility] consultant throughout hospitalization. Cardiology cleared patient for hospital disposition 10/18/2023, with instructions to follow-up with cardiology as outpatient within 1 week. Exam Data for Last 24 hours Vital signs and Labs for Last 24 Hours: Temp Pulse Resp BP Pulse Ox O2 Del Method O2 Flow Rate 98.1 F 61 20 126/69 95 Room Air 2 10/18/23 12:00 10/18/23 12:00 10/18/23 12:00 10/18/23 12:00 10/18/23 12:00 10/18/23 15:00 10/17/23 12:02 Laboratory Results - last 24 hr 10/17/23 12:02: Activated Clotting Time 260 H* 10/17/23 17:27: Troponin I 0.02 10/18/23 05:55: WBC 7.5, RBC 4.71, Hgb 13.9, Hct 45.1, MCV 95.7, MCH 29.6, MCHC 30.9 L, RDW 14.9, Plt Count 270, MPV 7.7, Neut % (Auto) 65.0, Lymph % (Auto) 24.2, [place] % (Auto) 5.6, Eos % (Auto) 4.0, Baso % (Auto) 1.2, Neut # (Auto) 4.9, Lymph # (Auto) 1.8, [place] # (Auto) 0.4, Eos # (Auto) 0.3, Baso # (Auto) 0.1, Sodium 135 L, Potassium 4.1, Chloride 107, Carbon Dioxide 25, Anion Gap 7.1, BUN 20 H, Creatinine 0.70, Estimated Creat Clear 45, Estimated GFR 82, Est GFR ( Amer) 100, Glucose 90 D, Calcium 8.9 I & O for Last 24 hours: Intake & Output 10/15/23 10/16/23 10/17/23 10/18/23 23:59 23:59 23:59 23:59 Intake Total 240 / 340 580 / 580 Output Total 0 / 0 0 / 0 Balance 240 / 340 580 / 580 Weight 101.605 kg 112.083 kg Constitutional Constitutional: no acute distress *Routine HEENT Exam Head: Present normocephalic Eye: Present EOMI and normal accommodation ENT: Present mucous membranes moist *Routine Neck Exam Neck: Present supple and full ROM *Routine Respiratory Exam Respiratory: Present CTA bilaterally and normal respiratory effort *Routine Cardiovascular Exam Cardiovascular: Present RRR, Normal S1 and Normal S2 *Routine Abdominal Exam Abdominal: Present soft and normoactive bowel sounds *Routine Extremities Exam Extremities: Present full ROM and normal capillary refill *Routine Skin Exam Skin: Present intact and dry *Routine Neurological Exam Neurological: Present alert, oriented X3 and CN II-XII intact Results Data Completed and Pending Labs on day of discharge: Labs from last 24 hours 10/18/23 10/17/23 10/17/23 05:55 17:27 12:02 WBC 7.5 RBC 4.71 Hgb 13.9 Hct 45.1 MCV 95.7 MCH 29.6 MCHC 30.9 L RDW 14.9 Plt Count 270 MPV 7.7 Neut % (Auto) 65.0 Lymph % (Auto) 24.2 [place] % (Auto) 5.6 Eos % (Auto) 4.0 Baso % (Auto) 1.2 Neut # (Auto) 4.9 Lymph # (Auto) 1.8 [place] # (Auto) 0.4 Eos # (Auto) 0.3 Baso # (Auto) 0.1 Activated Clotting Time 260 H* Sodium 135 L Potassium 4.1 Chloride 107 Carbon Dioxide 25 Anion Gap 7.1 BUN 20 H Creatinine 0.70 Estimated Creat Clear 45 Estimated GFR 82 Est GFR ( Amer) 100 Glucose 90 D Calcium 8.9 Troponin I 0.02 Impressions Impressions: 10/18/2023 echocardiogram results pending: But read by cardiology prior to hospital disposition with normal ejection fraction noted by cardiology notes. Exam: XR Chest Exam date and time: 10/17/2023 11:36 AM Age: 73 years old Clinical indication: Other: Stemi alert TECHNIQUE: Imaging protocol: Radiologic exam of the chest. Views: 1 view. COMPARISON: CR XR CHEST 2V 04/15/2022 10:18 AM FINDINGS: Lungs: Subsegmental atelectasis left lung base. Findings stable. Pleural spaces: Unremarkable. No pleural effusion. No pneumothorax. Heart/Mediastinum: Unremarkable. No cardiomegaly. Diaphragm: Eventration right hemidiaphragm again demonstrated. Bones/joints: Unremarkable. IMPRESSION: No evidence of acute cardiopulmonary disease. DS: Diagnosis Discharge Diagnosis (1) HLD (hyperlipidemia): Status: Acute Code(s): E78.5 - Hyperlipidemia, unspecified (2) HTN (hypertension): Status: Acute Code(s): I10 - Essential (primary) hypertension (3) ST elevation [place] (STEMI): Status: Acute Code(s): I21.3 - ST elevation (STEMI) myocardial infarction of unspecified site (4) Takotsubo cardiomyopathy: Status: Acute Code(s): I51.81 - Takotsubo syndrome Meds Home Medications and Allergies Home Medications ?Medication ?Instructions ?Recorded ?Confirmed ?Type levothyroxine 150 mcg tablet 150 mcg PO AM 08/17/17 10/17/23 History venlafaxine 150 mg 300 mg PO DAILY 08/17/17 10/17/23 History capsule,extended release 24 hr atorvastatin 80 mg tablet 80 mg PO HS 08/18/18 10/17/23 History bisoprolol fumarate 5 mg tablet 2.5 mg PO DAILY 01/22/20 10/17/23 History trazodone 100 mg tablet 100 mg PO HS 10/17/23 10/17/23 History New Prescriptions to Start Prescriptions: Allergies Allergy/AdvReac Type Severity Reaction Status Date / Time No Known Allergies Allergy Verified 02/09/20 13:35 Discharge Plan Disposition Patient Disposition: Home, Self-Care Discharge Order Discharge Orders: Discharge Order (Routine); Ordered 10/18/23 Ordered By: Ciro Lester Follow up Plan Follow up with: Jake Collado MD [Staff Physician] - 1 week (Status post recent hospitalization for Takotsubo cardiomyopathy) Castro Sanchez MD [Primary Care Provider] - See instructions Prescriptions/Medication Reconciliation: Continued atorvastatin 80 mg tablet 80 mg PO HS venlafaxine 150 MG capsule,extended release 24hr 300 mg PO DAILY levothyroxine 150 MCG tablet 150 mcg PO AM bisoprolol fumarate 5 MG tablet 2.5 mg PO DAILY trazodone 100 mg tablet 100 mg PO HS Patient Comments: TAKE 1 TABLET BY MOUTH ONCE DAILY AT BEDTIME Problem Reconciliation Problems Reviewed?: Yes Patient Discharge Instructions ACTIVITY: Continue current activity DIET: continue same diet Patient Instructions: Broken Heart Syndrome, DI for Cardiac Catheterization, DI for Surgical Site Infection Print Language: [place] Providers Primary Care Provider: Castro Sanchez Admit Provider: Alex Avila Attending Provider: Alex Avila
--- NOTE | 2023-10-20 12:56 | SW/DCPLANNER ---
Hospital follow up phone call: patient stated that she is doing well at home and is aware of her follow up appointments. Patient did not have any further needs/questions at this time.
== END 2023-10-18 17:10 | disposition home or self-care (01) | DRG 281 ==
LOC: ER 11:38 → CATHLAB 12:04 → 2ND 13:29
PROVIDERS: Internal Medicine; Admitting Provider Internal Medicine; Emergency Provider Student in an Organized Health Care Education/Training Program; PCP Internal Medicine Adolescent Medicine; Visit Provider Internal Medicine
PROC: 4A023N7 Measurement of Cardiac Sampling and Pressure, Left Heart, Percutaneous Approach (ICD-10-PCS; principal; 2023-10-17 11:45)
DX: I51.81 Takotsubo syndrome (principal); I21.3 ST elevation (STEMI) myocardial infarction of unspecified site; R00.1 Bradycardia, unspecified; E03.9 Hypothyroidism, unspecified; I10 Essential (primary) hypertension; E78.5 Hyperlipidemia, unspecified
CPT/HCPCS: 36415; 71045; 80048; 80053; 83880; 84484; 85025; 85347; 85610; 93005; 93306; 93458; 99152; 99153; 99291; C1725; C1769; J1200; J1644; J2250; J2405; J3010; Q9967